=== PATIENT | female | born 1965 | race Caucasian/White ===

== ENCOUNTER 2024-11-29 09:15 | Observation (INO) | payer OTHER ==
--- NOTE | 2024-11-29 09:26 | ERPHSYRPT ---
- History of Present Illness Time Seen by Provider: 11/29/24 09:25 Source: patient, family Exam Limitations: clinical condition Physician History: This is a 58-year-old white female patient brought in by private vehicle accompanied by her spouse with symptoms consistent with anterograde amnesia. She was last well-known at 11 PM last night (11/28/2024). Patient's got up at approximately 6 AM and went to work out at his exercise club and when he returned she seemed forgetful and confused. Patient has only been diagnosed with arthritis in the past. There is been no new medications. She takes no medications chronically. There has been no known head injury. Patient denies chest pain. Patient denies shortness of breath. Patient's NIH score is 0. Patient is speaking clearly. Patient's systolic blood pressure on arrival to the emergency department is 177. Additional, independent history was provided by the patient's spouse. Patient spouse was already home. The patient actually got in her car and drove. She then returned home. She told the spouse that she does not feel right. Something is off. Patient does not recall getting in the car, driving or coming home. She does not recall the conversation that she had with her spouse. She does remember her spouse telling her that he is taken her to the hospital. The next memory is of her being transported to the CT scanner suite. Time of Onset/Last Time Seen Normal: At 11 PM on 11/28/2024 Timing/Duration: today Severity: mild (Moderate) Character of Deficits: other (Confused and unable to recollect) Deficits: no difficulties Baseline/Normal Cognition: alert oriented x 3 Current Cognition: alert oriented x 3 Associated Symptoms: confusion, No slurred speech, No trouble walking, No headache Allergies/Adverse Reactions: nitrous oxide Allergy (Verified 11/29/24 09:17) Home Medications: No Reportable Medications [No Reported Medications] 10/01/15 [History] Hx Influenza Vaccination/Date Given: No Hx Pneumococcal Vaccination/Date Given: No Travel Risk - International Travel Have you traveled outside of the country in past 3 weeks: No - Emerging Infectious Disease Are you exhibiting symptoms associated with any current EIDs: No - Vaccine Status Hx Covid Vaccintation/Booster/Date Given: No - Review of Systems Constitutional: No Symptoms Eyes: No Symptoms Ears, Nose, & Throat: No Symptoms Respiratory: No Symptoms Cardiac: No Symptoms Abdominal/Gastrointestinal: No Symptoms Genitourinary Symptoms: No Symptoms Musculoskeletal: No Symptoms Skin: No Symptoms Neurological: Other (Patient cannot recall recent events or conversations) Psychological: No Symptoms Endocrine: No Symptoms Hematologic/Lymphatic: No Symptoms Immunological/Allergic: No Symptoms All Other Systems: Reviewed and Negative - Past Medical History Neurological History: No Pertinent History Cardiac History: No Pertinent History Respiratory History: No Pertinent History Endocrine Medical History: No Pertinent History Musculoskeletal History: Arthritis - Past Surgical History Past Surgical History: No Neuro Surgical History: No Pertinent History Cardiac: No Pertinent History Respiratory: No Pertinent History Gastrointestinal: No Pertinent History Genitourinary: No Pertinent History Musculoskeletal: No Pertinent History Female Surgical History: No Pertinent History - Social History Smoking Status: Never smoker Exposure to second hand smoke: No Drug Use: none - Nursing Vital Signs Nursing Vital Signs: Initial Vital Signs Pulse Rate 97 H 11/29/24 09:18 Respiratory Rate 32 H 11/29/24 09:18 Blood Pressure 177/99 11/29/24 09:18 Pain Scale Pain Intensity 4 - [place] Coma Scale Best Eye Response (Keith): (4) open spontaneously Best Verbal Response ([place]): (5) oriented Best Motor Response (Keith): (6) obeys commands [place] Total: 15 - Physical Exam General Appearance: no apparent distress, alert, anxiety, thin Eye Exam: bilateral eye: normal inspection, PERRL, EOMI Ears, Nose, Throat Exam: normal ENT inspection, moist mucous membranes Neck Exam: normal inspection, non-tender, supple, full range of motion Respiratory: normal breath sounds, chest tenderness, lungs clear, respiratory distress Cardiovascular: regular rate/rhythm, normal heart sounds, normal peripheral pulses Gastrointestinal: soft, normal bowel sounds, No tenderness Pelvic Exam: not done Rectal Exam: not done Back Exam: normal inspection, normal range of motion, No CVA tenderness, No vertebral tenderness Extremity Exam: normal inspection, normal range of motion, pelvis stable Mental Status: alert, oriented x 3, cooperative paint dipper Exam: normal hearing, normal speech, PERRL, tongue midline Coordination/Gait: normal finger to nose, normal gait Motor/Sensory: no motor deficit, no sensory deficit, no pronator drift Skin Exam: normal color, warm, dry O2 Delivery: Room Air - Course Nursing assessment & vital signs reviewed: Yes EKG Interpreted by Me: RATE (78), Sinus Rhythm, NORMAL AXIS, NORMAL QRS, Other (Short [place] interval. QTc is 444. There are no acute ischemia findings.) Ordered Tests: Active Orders 24 hr Category Date Time Status Harbor Engineer STAT Care 11/29/24 09:28 Active EKG-ER Only STAT Care 11/29/24 09:27 Active IV Insertion STAT Care 11/29/24 09:27 Active NPO (ED) STAT Care 11/29/24 09:27 Active POCT Glucose Check STAT Care 11/29/24 09:27 Active Pulse Oximetry (ED) STAT Care 11/29/24 09:27 Active HEAD WITHOUT CONTRAST [CT] Stat Exams 11/29/24 09:16 Completed ACETAMINOPHEN Stat Lab 11/29/24 09:56 Completed BLOOD CULTURE Stat Lab 11/29/24 09:56 Received CBC W DIFF Stat Lab 11/29/24 09:56 Completed CMP Stat Lab 11/29/24 09:56 Completed ETHYL ALCOHOL Stat Lab 11/29/24 09:56 Completed Lactic Acid Stat Lab 11/29/24 09:27 Completed Lactic Acid Stat Lab 11/29/24 11:50 Stop Req MAGNESIUM Stat Lab 11/29/24 09:56 Completed POCT GLUCOSE Stat Lab 11/29/24 09:19 Completed SALICYLATE Stat Lab 11/29/24 09:56 Completed TROPONIN Q4H Lab 11/29/24 09:56 Completed TROPONIN Q4H Lab 11/29/24 09:56 Received TROPONIN Q4H Lab 11/29/24 18:00 Ordered TSH [TSH, 3RD Generation] Stat Lab 11/29/24 09:56 Completed UA W/RFX UR CULTURE Stat Lab 11/29/24 10:20 Completed Urine Triage Profile Stat Lab 11/29/24 10:20 Completed Transfer Order Routine Transfer 11/29/24 Ordered Medication Summary Discontinued Medications Generic Name Dose Route Start Last Admin Trade Name Freq PRN Reason Stop Dose Admin Ibuprofen 400 mg 11/29/24 11:06 11/29/24 11:56 Ibuprofen 400 Mg Tablet PO 11/29/24 11:07 Not Given STAT ONE Ibuprofen Confirm 11/29/24 11:08 Ibuprofen 400 Mg Tablet Administered 11/29/24 11:09 Dose 400 mg .ROUTE .STK-MED ONE Lab/Rad Data: Laboratory Result Diagrams 11/29/24 09:56 11/29/24 09:56 Laboratory Results 11/29/24 11/29/24 11/29/24 Range/Units 10:20 10:20 09:56 WBC (3.98-10.04) x10^3/uL RBC (3.93-5.22) x10^6/uL Hgb (11.2-15.7) g/dL Hct (34.1-44.9) % MCV (79.4-94.8) fL MCH (25.6-32.2) pg MCHC (32.2-35.5) g/dL RDW (11.7-14.4) % Plt Count (182-369) x10^3/uL MPV (9.4-12.3) fL Gran % (34.0-71.1) % Immature Gran % (Auto) (0.001-0.429) % Nucleat RBC Rel Count (0.00-0.2) % Eos # (Auto) (0.04-0.36) x10^3/uL Immature Gran # (Auto) (0.001-0.031) x10^3u/L Absolute Lymphs (auto) (1.18-3.74) x10^3/uL Absolute Monos (auto) (0.24-0.86) x10^3/uL Absolute Nucleated RBC (0.00-0.012) x10^3u/L Lymphocytes % (19.3-51.7) % Monocytes % (4.7-12.5) % Eosinophils % (0.7-5.8) % Basophils % (0.1-1.2) % Absolute Granulocytes (1.56-6.13) x10^3/uL Basophils # (0.01-0.08) x10^3/uL Sodium (135-145) mmol/L Potassium (3.5-5.1) mmol/L Chloride (98-107) mmol/L Carbon Dioxide (22-30) mmol/L Anion Gap (5-15) MEQ/L BUN (7-17) mg/dL Creatinine (0.52-1.04) mg/dL Estimated GFR ML/MIN Glucose (74-106) mg/dL POC Glucometer (74 to 106) mg/dL Lactic Acid (0.4-2.0) Calcium (8.4-10.2) mg/dL Magnesium (1.6-2.3) mg/dL Total Bilirubin (0.2-1.3) mg/dL AST (14-36) U/L ALT (0-35) U/L Alkaline Phosphatase (38-126) U/L Troponin I < 0.012 (0.000-0.033) ng/mL Serum Total Protein (6.3-8.2) g/dL Albumin (3.5-5.0) g/dL Free T4 (0.78-2.19) ng/dL TSH 3rd Generation (0.470-4.680) mIU/L Urine Color Yellow (Yellow) Urine Appearance Clear (Clear) Urine pH 5.0 (4.6-8.0) Ur Specific [place] 1.025 (1.005-1.030) Urine Protein Trace A (Negative) Urine Glucose (UA) Negative (Negative) mg/dL Urine Ketones Trace A (Negative) Urine Blood Negative (Negative) Urine Nitrite Negative (Negative) Urine Bilirubin Negative (Negative) Urine Urobilinogen 0.2 (0.2) mg/dL Ur Leukocyte Esterase Small A (Negative) U Hyaline Cast (Auto) NONE SEEN (0-2) /LPF Urine Microscopic RBC 0-2 (0-5) /HPF Urine Microscopic WBC 0-2 (0-5) /HPF Ur Epithelial Cells Rare (None Seen) /HPF Urine Bacteria None Seen (None Seen) /HPF Urine Culture Reflexed NO (NO) Salicylates (2-20) mg/dL Urine Opiates Level NEGATIVE (NEGATIVE) Ur Methadone NEGATIVE (NEGATIVE) Acetaminophen (10-30) ug/ml Urine Barbiturates NEGATIVE (NEGATIVE) Ur Phencyclidine (PCP) NEGATIVE (NEGATIVE) Urine Amphetamine NEGATIVE (NEGATIVE) U Benzodiazepine Level NEGATIVE (NEGATIVE) Urine Cocaine NEGATIVE (NEGATIVE) Urine Marijuana (THC) NEGATIVE (NEGATIVE) Ethyl Alcohol (0-10) mg/dL 11/29/24 11/29/24 11/29/24 Range/Units 09:56 09:56 09:56 WBC (3.98-10.04) x10^3/uL RBC (3.93-5.22) x10^6/uL Hgb (11.2-15.7) g/dL Hct (34.1-44.9) % MCV (79.4-94.8) fL MCH (25.6-32.2) pg MCHC (32.2-35.5) g/dL RDW (11.7-14.4) % Plt Count (182-369) x10^3/uL MPV (9.4-12.3) fL Gran % (34.0-71.1) % Immature Gran % (Auto) (0.001-0.429) % Nucleat RBC Rel Count (0.00-0.2) % Eos # (Auto) (0.04-0.36) x10^3/uL Immature Gran # (Auto) (0.001-0.031) x10^3u/L Absolute Lymphs (auto) (1.18-3.74) x10^3/uL Absolute Monos (auto) (0.24-0.86) x10^3/uL Absolute Nucleated RBC (0.00-0.012) x10^3u/L Lymphocytes % (19.3-51.7) % Monocytes % (4.7-12.5) % Eosinophils % (0.7-5.8) % Basophils % (0.1-1.2) % Absolute Granulocytes (1.56-6.13) x10^3/uL Basophils # (0.01-0.08) x10^3/uL Sodium 139 (135-145) mmol/L Potassium 3.6 (3.5-5.1) mmol/L Chloride 105 (98-107) mmol/L Carbon Dioxide 26 (22-30) mmol/L Anion Gap 11.0 (5-15) MEQ/L BUN 17 (7-17) mg/dL Creatinine 0.80 (0.52-1.04) mg/dL Estimated GFR 84.3 ML/MIN Glucose 127 H (74-106) mg/dL POC Glucometer (74 to 106) mg/dL Lactic Acid (0.4-2.0) Calcium 9.7 (8.4-10.2) mg/dL Magnesium 1.9 (1.6-2.3) mg/dL Total Bilirubin 1.90 H (0.2-1.3) mg/dL AST 25 (14-36) U/L ALT 19 (0-35) U/L Alkaline Phosphatase 101 (38-126) U/L Troponin I (0.000-0.033) ng/mL Serum Total Protein 7.5 (6.3-8.2) g/dL Albumin 4.7 (3.5-5.0) g/dL Free T4 1.34 (0.78-2.19) ng/dL TSH 3rd Generation 1.343 (0.470-4.680) mIU/L Urine Color (Yellow) Urine Appearance (Clear) Urine pH (4.6-8.0) Ur Specific [place] (1.005-1.030) Urine Protein (Negative) Urine Glucose (UA) (Negative) mg/dL Urine Ketones (Negative) Urine Blood (Negative) Urine Nitrite (Negative) Urine Bilirubin (Negative) Urine Urobilinogen (0.2) mg/dL Ur Leukocyte Esterase (Negative) U Hyaline Cast (Auto) (0-2) /LPF Urine Microscopic RBC (0-5) /HPF Urine Microscopic WBC (0-5) /HPF Ur Epithelial Cells (None Seen) /HPF Urine Bacteria (None Seen) /HPF Urine Culture Reflexed (NO) Salicylates < 1.0 L (2-20) mg/dL Urine Opiates Level (NEGATIVE) Ur Methadone (NEGATIVE) Acetaminophen < 10 L (10-30) ug/ml Urine Barbiturates (NEGATIVE) Ur Phencyclidine (PCP) (NEGATIVE) Urine Amphetamine (NEGATIVE) U Benzodiazepine Level (NEGATIVE) Urine Cocaine (NEGATIVE) Urine Marijuana (THC) (NEGATIVE) Ethyl Alcohol < 10 (0-10) mg/dL 11/29/24 11/29/24 11/29/24 Range/Units 09:56 09:27 09:19 WBC 5.1 (3.98-10.04) x10^3/uL RBC 4.83 (3.93-5.22) x10^6/uL Hgb 15.2 (11.2-15.7) g/dL Hct 44.0 (34.1-44.9) % MCV 91.1 (79.4-94.8) fL MCH 31.5 (25.6-32.2) pg MCHC 34.5 (32.2-35.5) g/dL RDW 12.3 (11.7-14.4) % Plt Count 191 (182-369) x10^3/uL MPV 9.9 (9.4-12.3) fL Gran % 67.8 (34.0-71.1) % Immature Gran % (Auto) 0.4 (0.001-0.429) % Nucleat RBC Rel Count 0.0 (0.00-0.2) % Eos # (Auto) 0.11 (0.04-0.36) x10^3/uL Immature Gran # (Auto) 0.02 (0.001-0.031) x10^3u/L Absolute Lymphs (auto) 1.09 L (1.18-3.74) x10^3/uL Absolute Monos (auto) 0.39 (0.24-0.86) x10^3/uL Absolute Nucleated RBC 0.00 (0.00-0.012) x10^3u/L Lymphocytes % 21.4 (19.3-51.7) % Monocytes % 7.6 (4.7-12.5) % Eosinophils % 2.2 (0.7-5.8) % Basophils % 0.6 (0.1-1.2) % Absolute Granulocytes 3.46 (1.56-6.13) x10^3/uL Basophils # 0.03 (0.01-0.08) x10^3/uL Sodium (135-145) mmol/L Potassium (3.5-5.1) mmol/L Chloride (98-107) mmol/L Carbon Dioxide (22-30) mmol/L Anion Gap (5-15) MEQ/L BUN (7-17) mg/dL Creatinine (0.52-1.04) mg/dL Estimated GFR ML/MIN Glucose (74-106) mg/dL POC Glucometer 115 H (74 to 106) mg/dL Lactic Acid 1.9 (0.4-2.0) Calcium (8.4-10.2) mg/dL Magnesium (1.6-2.3) mg/dL Total Bilirubin (0.2-1.3) mg/dL AST (14-36) U/L ALT (0-35) U/L Alkaline Phosphatase (38-126) U/L Troponin I (0.000-0.033) ng/mL Serum Total Protein (6.3-8.2) g/dL Albumin (3.5-5.0) g/dL Free T4 (0.78-2.19) ng/dL TSH 3rd Generation (0.470-4.680) mIU/L Urine Color (Yellow) Urine Appearance (Clear) Urine pH (4.6-8.0) Ur Specific [place] (1.005-1.030) Urine Protein (Negative) Urine Glucose (UA) (Negative) mg/dL Urine Ketones (Negative) Urine Blood (Negative) Urine Nitrite (Negative) Urine Bilirubin (Negative) Urine Urobilinogen (0.2) mg/dL Ur Leukocyte Esterase (Negative) U Hyaline Cast (Auto) (0-2) /LPF Urine Microscopic RBC (0-5) /HPF Urine Microscopic WBC (0-5) /HPF Ur Epithelial Cells (None Seen) /HPF Urine Bacteria (None Seen) /HPF Urine Culture Reflexed (NO) Salicylates (2-20) mg/dL Urine Opiates Level (NEGATIVE) Ur Methadone (NEGATIVE) Acetaminophen (10-30) ug/ml Urine Barbiturates (NEGATIVE) Ur Phencyclidine (PCP) (NEGATIVE) Urine Amphetamine (NEGATIVE) U Benzodiazepine Level (NEGATIVE) Urine Cocaine (NEGATIVE) Urine Marijuana (THC) (NEGATIVE) Ethyl Alcohol (0-10) mg/dL - Progress Progress: improved Progress Note: 11/29/24 09:38 My medical decision making and the assignment of at least moderate complexity of this patient's medical issue today is based on review of the patient's past medical history, review the patient's medication list, reviewed patient drug allergy list, history present illness and physical findings on examination. The workup in this patient includes stat CT scan of the head, placement of intravenous line, urinalysis, acetaminophen level, ethyl alcohol level, salicylate level, urinalysis, urine drug triage, CBC, CMP, magnesium, twelve- lead EKG, thyroid function test. Differential diagnosis includes but is not limited to stress reaction, head injury with intracranial abnormality, electrolyte abnormalities, dehydration, urinary tract infection, CVA, thyroid function abnormalities 11/29/24 11:33 I was informed by the nurse, Yolanda, that the teleneurologist has evaluated the patient. I have not heard from that teleneurologist as of yet. I interpreted the patient's laboratory data results. Based on the laboratory data results, I see no acute, emergent medical issue. The CT scan of the head without contrast was interpreted by the radiologist and I reviewed the impression. The impression states no intra or extra-axial hematoma. No parenchymal hypodense areas to suggest an acute ischemic insult. 11/29/24 12:02 The patient is reexamined and she is back to her baseline and asymptomatic. I spoke with Dr. Alston, the teleneurologist on-call at this time. She believes that this patient may have a transient global amnesia possibly secondary to migraine headache. She would like the patient to be placed in observation and monitored both from the neurostandpoint and the vascular standpoint. She would also like to have the patient undergo echocardiogram, EEG, Doppler of the carotids and MRA/MRI of the brain. She would also like the patient to have a aspirin every day as well as a statin. She specifically stated that there is no need for Plavix at this time. We will place this patient in observation and monitored. Since the patient is back at baseline and the TIA is low in the differential, she states that the echocardiogram, EEG, carotid Dopplers and MRA/MRI of the brain can be performed in the next couple of days. My concern about discharging this patient to home to have the studies done as an outpatient will delay her obtaining the studies for another week or 2. In addition, the patient and family prefer this patient to stay at our facility. I spoke with Dr. Ramirez, the telehospitalist on at this time and she agrees to place this patient in observation. Counseled pt/family regarding: lab results, need for follow-up Medical Desision Making - Independent Historian Additional History obtained from: Spouse, Relative/friend - Diagnostic Testing Diagnostic test were ordered, analyzed, and reviewed by me: Yes Radiological Interpretation: Reviewed by me, Teleradiologist Report - Risk of complications The pt has a high risk of morbidity or mortality based on: Decision regarding hospitilization or escalation of hosp level of care - Departure Departure Disposition: Observation Clinical Impression: Transient global amnesia, TIA (transient ischemic attack) Condition: Stable Critical Care Time: No Referrals: TRINO HIGUERA MD [Primary Care Provider, [facility]] - Follow up/PCP as directed
--- NOTE | 2024-11-29 09:50 | XRAY ---
CLINICAL HISTORY: CONFUSION COMPARISON: None. TECHNIQUE: Axial non-contrast CT scan of the brain was performed from the skull base to the high parietal region. One of the following dose reduction techniques were utilized for this exam: Automated exposure control, adjustment of the mA and/or kV according to patient size, use of iterative reconstruction. FINDINGS: Brain Parenchyma: Normal attenuation of the cerebral hemispheres, cerebellum, and brainstem. No evidence of acute infarct, hemorrhage, or mass effect. No abnormal areas of hypo- or hyperattenuation. Ventricular System: Ventricles are normal in size and configuration. No evidence of hydrocephalus or ventricular enlargement. Subarachnoid Spaces: Normal sulci and cisterns. No evidence of subarachnoid hemorrhage or extra-axial fluid collections. Cerebellum and Brainstem: No masses, lesions, or areas of abnormal density. Orbits: Normal appearance of the globes, optic nerves, and extraocular muscles. No evidence of orbital masses or abnormal density. Sinuses: Clear paranasal sinuses. No evidence of sinusitis or mucosal thickening. Mastoid Air Cells: Clear mastoid air cells. No evidence of mastoiditis. Skull: Normal skull morphology. IMPRESSION: 1. No intra- or extra-axial hematomas or parenchymal territorial hypodense areas suggest an acute ischemic insult. 2. Early changes of stroke may not be detected on a CT scan. If there is a strong clinical suspicion of stroke, then an MRI with diffusion-weighted imaging is suggested. The report was ready at 08:39 AM [employer], 11/29/2024 and the call was completed at 08:42 AM [facility], 11/29/2024, at [phone] and Kendell ( Nurse ) was informed regarding the negative stroke results. Electronically Signed by: Frances Marte MD. (11/29/2024 09:45:53 EDT)
[2024-11-29 10:14] LABS: Absolute Neutrophil Ct (ANC) 3.46 x10^3/uL (1.56-6.13); BASOPHIL % 0.6 % (0.1-1.2); Basophil (Absolute #) 0.03 x10^3/uL (0.01-0.08); Eosinophil % 2.2 % (0.7-5.8); Eosinophil (Absolute #) 0.11 x10^3/uL (0.04-0.36); Hemoglobin 15.2 g/dL (11.2-15.7); IMMATURE GRAN # 0.02 x10^3u/L (0.001-0.031); IMMATURE GRAN % 0.4 % (0.001-0.429); Lymphocyte (Absolute #) 1.09 x10^3/uL (1.18-3.74); Lymphocytes % 21.4 % (19.3-51.7); Mean Cell Volume 91.1 fL (79.4-94.8); Mean Corpuscular Hemoglobin 31.5 pg (25.6-32.2); Mean Corpuscular Hgb Concent. 34.5 g/dL (32.2-35.5); Mean Platelet Volume 9.9 fL (9.4-12.3); Monocyte (Absolute #) 0.39 x10^3/uL (0.24-0.86); Monocytes % 7.6 % (4.7-12.5); Neutrophil % 67.8 % (34.0-71.1); Platelet Count 191 x10^3/uL (182-369); Red Blood Count 4.83 x10^6/uL (3.93-5.22); Red Cell Distribution Width 12.3 % (11.7-14.4); White Blood Count 5.1 x10^3/uL (3.98-10.04)
[2024-11-29 10:21] LABS: ACETAMINOPHEN < 10 ug/ml (10-30); ALBUMIN 4.7 g/dL (3.5-5.0); ALKALINE PHOSPHATASE 101 U/L (38-126); BLOOD UREA NITROGEN 17 mg/dL (7-17); CHLORIDE 105 mmol/L (98-107); Calcium 9.7 mg/dL (8.4-10.2); Carbon Dioxide 26 mmol/L (22-30); EST GLOMERULAR FILTRATION RATE 84.3 ML/MIN; ETHYL ALCOHOL < 10 mg/dL (0-10); Glucose 127 mg/dL (74-106); MAGNESIUM 1.9 mg/dL (1.6-2.3); Potassium 3.6 mmol/L (3.5-5.1); SALICYLATE < 1.0 mg/dL (2-20); SGOT/AST 25 U/L (14-36); SGPT/ALT 19 U/L (0-35); SODIUM 139 mmol/L (135-145); Total Protein 7.5 g/dL (6.3-8.2)
[2024-11-29 10:57] LABS: Amphetamine,Urine NEGATIVE (NEGATIVE); Barbiturate,Urine NEGATIVE (NEGATIVE); Benzodiazepine,Urine NEGATIVE (NEGATIVE); Cocaine,Urine NEGATIVE (NEGATIVE); Methadone,Urine NEGATIVE (NEGATIVE); Opiate,Urine NEGATIVE (NEGATIVE); PCP,Urine NEGATIVE (NEGATIVE); THC,Urine NEGATIVE (NEGATIVE)
[2024-11-29 11:03] LABS: Appearance Clear (Clear); Bacteria None Seen /HPF (None Seen); Bilirubin Negative (Negative); Blood Negative (Negative); Epithelial Cells Rare /HPF (None Seen); Glucose, Urine Negative (Negative); Hyaline Casts NONE SEEN /LPF (0-2); Ketones Trace (Negative); Leukocyte Esterase Small (Negative); Nitrite Negative (Negative); Protein,Urine Dip Trace (Negative); RBC 0-2 /HPF (0-5); Specific Gravity 1.025 (1.005-1.030); Urobilinogen 0.2 mg/dL (0.2); WBC 0-2 /HPF (0-5)
[2024-11-29] MEDS ORDERED: MOTRIN 400 MG ONE (11:08)
[2024-11-29] MEDS: MOTRIN 400 MG PO ONE ×2 (11:56→15:33)
--- NOTE | 2024-11-29 12:19 | PCM.HP ---
<VITO ALEJANDRA - Last Filed: 11/29/24 13:45> History of Present Illness - Chief Complaint Chief Complaint: confusion Date: 11/29/24 History of Present Illness: is a 58 year old female with a past medical history significant only for arthritis and chronic back pain ( receives steroid injections at pain management in [place]), who presented to the ED 11/29/24 accompanied by her spouse with acute onset of anterograde amnesia. She was last known well at approximately 11:00 PM on 11/28/2024. Her is present during interview and states that he noted that the patient was forgetful and exhibited signs of confusion after returning home from his exercise class. Notably, she had left the home in her vehicle and returned, but she has no recollection of driving, leaving, or returning. 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 She subsequently told her spouse, I dont feel right, and could not recall the conversation they had shortly afterward. She remembers only being told she was going to the hospital, with her next memory being of her transport to get her CT scan. She stated during my interview that she felt like a fog was over her and now it is lifting and she is starting to recall tiny bits of information. On initial evaluation, the patient denied chest pain, shortness of breath, headache, focal neurological deficits, or visual disturbances. She is alert, speaking clearly, and following commands. Her National Institutes of Health Stroke Scale (NIHSS) score was 0, indicating no objective neurological deficits at the time of evaluation. Her vital signs were stable but notable for elevated systolic blood pressure, peaking at 180/81 mmHg. She was mildly tachypneic on arrival with otherwise normal oxygenation and heart rate. Initial laboratory evaluation was largely unremarkable, except for a mildly elevated total bilirubin of 1.9 mg/dL. Urinalysis showed small leukocytes, suggesting a possible subclinical urinary tract infection; however, the clinical relevance of this finding remains unclear in the absence of dysuria, fever, or other systemic signs of infection. A urine drug screen was negative. EKG revealed a sinus rhythm at a rate of 78 bpm, normal QRS duration and axis, and a QTc of 444 ms. There was a short IL interval noted, but no acute ischemic changes were present. Head CT demonstrated no evidence of acute intracranial hemorrhage, extra-axial fluid collection, or parenchymal hypodensity to suggest acute ischemic stroke. Findings were reviewed and confirmed by the attending radiologist. Teleneurology was consulted, and Dr. Alston evaluated the patient via telehealth. She concurred with the clinical impression of transient global amnesia (TGA), potentially migrainous in origin. Given the benign neurological exam and return to baseline mentation, Dr. Alston did not believe the presentation was consistent with transient ischemic attack (TIA) or seizure. Nonetheless, due to the diagnostic uncertainty and vascular risk, she recommended a brief period of observation and further evaluation including MRI/MRA of the brain, EEG, carotid Doppler ultrasonography, and transthoracic echocardiography. She also advised initiating aspirin therapy and a statin but did not feel antiplatelet therapy with clopidogrel (Plavix) was indicated. Patient currently declines the statin. Given concerns about the potential delay in outpatient testing and diagnostic workup, the patient will be admitted to observation for expedited completion of the above studies on Sunday and continued monitoring. Her condition remains stable and she has returned to baseline cognitive status. - Review of Systems Constitutional: No Symptoms Eyes: No Symptoms Ears, Nose, & Throat: No Symptoms Respiratory: No Symptoms Cardiac: No Symptoms Abdominal/Gastrointestinal: No Symptoms Genitourinary Symptoms: No Symptoms Musculoskeletal: Back Pain (chronic) Skin: No Symptoms Neurological: No Symptoms Psychological: Memory Loss Endocrine: No Symptoms Hematologic/Lymphatic: No Symptoms Immunological/Allergic: No Symptoms Medications & Allergies Home Medications: Home Medication List No Reportable Medications [No Reported Medications] 10/01/15 [History Confirmed 11/29/24] Allergies/Adverse Reactions: Allergies Allergy/AdvReac Type Severity Reaction Status Date / Time nitrous oxide Allergy Verified 11/29/24 15:47 - Past Medical History Past Medical History: Yes Neurological History: No Pertinent History ENT History: No Pertinent History Cardiac History: No Pertinent History Respiratory History: No Pertinent History Endocrine Medical History: No Pertinent History Musculoskelatal History: Arthritis GI Medical History: No Pertinent History History: No Pertinent History Pyscho-Social History: No Pertinent History Reproductive Disorders: No Pertinent History - Past Surgical History Past Surgical History: No Neuro Surgical History: No Pertinent History Cardiac History: No Pertinent History Respiratory Surgery: No Pertinent History GI Surgical History: No Pertinent History Genitourinary Surgical Hx: No Pertinent History Musculskeletal Surgical Hx: No Pertinent History Female Surgical History: No Pertinent History Significant Family History: other (AFIB) - Social History Smoking Status: Never smoker Exposure to second hand smoke: No Alcohol: None Drug Use: none - Social Determinants of Health Will the patient participate in the screening: Yes Do you worry about a steady place to live?: No Do you have any problems with any of the following?: No known problems In the past 12 months,have you had to go without utilities?: No Have you or anyone in your house had to go without enough: No Transportation Issues: No Has anyone in your support network made you feel unsafe?: No - Physical Exam Vital Signs: Vital Signs - 24 hr Temp Pulse Resp BP BP Pulse Ox 11/29/24 11:30 84 18 142/52 97 11/29/24 11:20 88 27 H 169/75 98 11/29/24 11:10 89 17 174/98 97 11/29/24 10:50 83 18 180/81 99 11/29/24 10:40 91 H 33 H 169/80 99 11/29/24 10:30 86 24 180/76 99 11/29/24 10:29 92 H 22 97 11/29/24 10:20 81 27 H 97 11/29/24 10:10 76 17 99 11/29/24 10:00 84 22 99 11/29/24 09:51 83 20 97 11/29/24 09:33 85 16 177/70 99 11/29/24 09:30 87 24 165/102 98 11/29/24 09:27 98 11/29/24 09:19 97.7 F 94 H 17 177/99 98 11/29/24 09:18 97 H 32 H 177/99 General Appearance: no apparent distress Neurologic Exam: alert, oriented x 3, cooperative Eye Exam: PERRL/EOMI Ears, Nose, Throat Exam: normal ENT inspection Neck Exam: normal inspection Respiratory Exam: normal breath sounds, lungs clear Cardiovascular Exam: regular rate/rhythm, normal heart sounds Gastrointestinal/Abdomen Exam: soft, normal bowel sounds Pelvic Exam: not done Rectal Exam: deferred Back Exam: normal inspection Extremity Exam: normal inspection Skin Exam: normal color Results - Labs Lab/Micro Results: Lab Results-Last 24 Hours 11/29/24 11/29/24 11/29/24 Range/Units 09:19 09:27 09:56 WBC 5.1 (3.98-10.04) x10^3/uL RBC 4.83 (3.93-5.22) x10^6/uL Hgb 15.2 (11.2-15.7) g/dL Hct 44.0 (34.1-44.9) % MCV 91.1 (79.4-94.8) fL MCH 31.5 (25.6-32.2) pg MCHC 34.5 (32.2-35.5) g/dL RDW 12.3 (11.7-14.4) % Plt Count 191 (182-369) x10^3/uL MPV 9.9 (9.4-12.3) fL Gran % 67.8 (34.0-71.1) % Immature Gran % (Auto) 0.4 (0.001-0.429) % Nucleat RBC Rel Count 0.0 (0.00-0.2) % Eos # (Auto) 0.11 (0.04-0.36) x10^3/uL Immature Gran # (Auto) 0.02 (0.001-0.031) x10^3u/L Absolute Lymphs (auto) 1.09 L (1.18-3.74) x10^3/uL Absolute Monos (auto) 0.39 (0.24-0.86) x10^3/uL Absolute Nucleated RBC 0.00 (0.00-0.012) x10^3u/L Lymphocytes % 21.4 (19.3-51.7) % Monocytes % 7.6 (4.7-12.5) % Eosinophils % 2.2 (0.7-5.8) % Basophils % 0.6 (0.1-1.2) % Absolute Granulocytes 3.46 (1.56-6.13) x10^3/uL Basophils # 0.03 (0.01-0.08) x10^3/uL Sodium (135-145) mmol/L Potassium (3.5-5.1) mmol/L Chloride (98-107) mmol/L Carbon Dioxide (22-30) mmol/L Anion Gap (5-15) MEQ/L BUN (7-17) mg/dL Creatinine (0.52-1.04) mg/dL Estimated GFR ML/MIN Glucose (74-106) mg/dL POC Glucometer 115 H (74 to 106) mg/dL Lactic Acid 1.9 (0.4-2.0) Calcium (8.4-10.2) mg/dL Magnesium (1.6-2.3) mg/dL Total Bilirubin (0.2-1.3) mg/dL AST (14-36) U/L ALT (0-35) U/L Alkaline Phosphatase (38-126) U/L Troponin I (0.000-0.033) ng/mL Serum Total Protein (6.3-8.2) g/dL Albumin (3.5-5.0) g/dL Free T4 (0.78-2.19) ng/dL TSH 3rd Generation (0.470-4.680) mIU/L Urine Color (Yellow) Urine Appearance (Clear) Urine pH (4.6-8.0) Ur Specific Matthews (1.005-1.030) Urine Protein (Negative) Urine Glucose (UA) (Negative) mg/dL Urine Ketones (Negative) Urine Blood (Negative) Urine Nitrite (Negative) Urine Bilirubin (Negative) Urine Urobilinogen (0.2) mg/dL Ur Leukocyte Esterase (Negative) U Hyaline Cast (Auto) (0-2) /LPF Urine Microscopic RBC (0-5) /HPF Urine Microscopic WBC (0-5) /HPF Ur Epithelial Cells (None Seen) /HPF Urine Bacteria (None Seen) /HPF Urine Culture Reflexed (NO) Salicylates (2-20) mg/dL Urine Opiates Level (NEGATIVE) Ur Methadone (NEGATIVE) Acetaminophen (10-30) ug/ml Urine Barbiturates (NEGATIVE) Ur Phencyclidine (PCP) (NEGATIVE) Urine Amphetamine (NEGATIVE) U Benzodiazepine Level (NEGATIVE) Urine Cocaine (NEGATIVE) Urine Marijuana (THC) (NEGATIVE) Ethyl Alcohol (0-10) mg/dL 11/29/24 11/29/24 11/29/24 Range/Units 09:56 09:56 09:56 WBC (3.98-10.04) x10^3/uL RBC (3.93-5.22) x10^6/uL Hgb (11.2-15.7) g/dL Hct (34.1-44.9) % MCV (79.4-94.8) fL MCH (25.6-32.2) pg MCHC (32.2-35.5) g/dL RDW (11.7-14.4) % Plt Count (182-369) x10^3/uL MPV (9.4-12.3) fL Gran % (34.0-71.1) % Immature Gran % (Auto) (0.001-0.429) % Nucleat RBC Rel Count (0.00-0.2) % Eos # (Auto) (0.04-0.36) x10^3/uL Immature Gran # (Auto) (0.001-0.031) x10^3u/L Absolute Lymphs (auto) (1.18-3.74) x10^3/uL Absolute Monos (auto) (0.24-0.86) x10^3/uL Absolute Nucleated RBC (0.00-0.012) x10^3u/L Lymphocytes % (19.3-51.7) % Monocytes % (4.7-12.5) % Eosinophils % (0.7-5.8) % Basophils % (0.1-1.2) % Absolute Granulocytes (1.56-6.13) x10^3/uL Basophils # (0.01-0.08) x10^3/uL Sodium 139 (135-145) mmol/L Potassium 3.6 (3.5-5.1) mmol/L Chloride 105 (98-107) mmol/L Carbon Dioxide 26 (22-30) mmol/L Anion Gap 11.0 (5-15) MEQ/L BUN 17 (7-17) mg/dL Creatinine 0.80 (0.52-1.04) mg/dL Estimated GFR 84.3 ML/MIN Glucose 127 H (74-106) mg/dL POC Glucometer (74 to 106) mg/dL Lactic Acid (0.4-2.0) Calcium 9.7 (8.4-10.2) mg/dL Magnesium 1.9 (1.6-2.3) mg/dL Total Bilirubin 1.90 H (0.2-1.3) mg/dL AST 25 (14-36) U/L ALT 19 (0-35) U/L Alkaline Phosphatase 101 (38-126) U/L Troponin I (0.000-0.033) ng/mL Serum Total Protein 7.5 (6.3-8.2) g/dL Albumin 4.7 (3.5-5.0) g/dL Free T4 1.34 (0.78-2.19) ng/dL TSH 3rd Generation 1.343 (0.470-4.680) mIU/L Urine Color (Yellow) Urine Appearance (Clear) Urine pH (4.6-8.0) Ur Specific Matthews (1.005-1.030) Urine Protein (Negative) Urine Glucose (UA) (Negative) mg/dL Urine Ketones (Negative) Urine Blood (Negative) Urine Nitrite (Negative) Urine Bilirubin (Negative) Urine Urobilinogen (0.2) mg/dL Ur Leukocyte Esterase (Negative) U Hyaline Cast (Auto) (0-2) /LPF Urine Microscopic RBC (0-5) /HPF Urine Microscopic WBC (0-5) /HPF Ur Epithelial Cells (None Seen) /HPF Urine Bacteria (None Seen) /HPF Urine Culture Reflexed (NO) Salicylates < 1.0 L (2-20) mg/dL Urine Opiates Level (NEGATIVE) Ur Methadone (NEGATIVE) Acetaminophen < 10 L (10-30) ug/ml Urine Barbiturates (NEGATIVE) Ur Phencyclidine (PCP) (NEGATIVE) Urine Amphetamine (NEGATIVE) U Benzodiazepine Level (NEGATIVE) Urine Cocaine (NEGATIVE) Urine Marijuana (THC) (NEGATIVE) Ethyl Alcohol < 10 (0-10) mg/dL 11/29/24 11/29/24 11/29/24 Range/Units 09:56 10:20 10:20 WBC (3.98-10.04) x10^3/uL RBC (3.93-5.22) x10^6/uL Hgb (11.2-15.7) g/dL Hct (34.1-44.9) % MCV (79.4-94.8) fL MCH (25.6-32.2) pg MCHC (32.2-35.5) g/dL RDW (11.7-14.4) % Plt Count (182-369) x10^3/uL MPV (9.4-12.3) fL Gran % (34.0-71.1) % Immature Gran % (Auto) (0.001-0.429) % Nucleat RBC Rel Count (0.00-0.2) % Eos # (Auto) (0.04-0.36) x10^3/uL Immature Gran # (Auto) (0.001-0.031) x10^3u/L Absolute Lymphs (auto) (1.18-3.74) x10^3/uL Absolute Monos (auto) (0.24-0.86) x10^3/uL Absolute Nucleated RBC (0.00-0.012) x10^3u/L Lymphocytes % (19.3-51.7) % Monocytes % (4.7-12.5) % Eosinophils % (0.7-5.8) % Basophils % (0.1-1.2) % Absolute Granulocytes (1.56-6.13) x10^3/uL Basophils # (0.01-0.08) x10^3/uL Sodium (135-145) mmol/L Potassium (3.5-5.1) mmol/L Chloride (98-107) mmol/L Carbon Dioxide (22-30) mmol/L Anion Gap (5-15) MEQ/L BUN (7-17) mg/dL Creatinine (0.52-1.04) mg/dL Estimated GFR ML/MIN Glucose (74-106) mg/dL POC Glucometer (74 to 106) mg/dL Lactic Acid (0.4-2.0) Calcium (8.4-10.2) mg/dL Magnesium (1.6-2.3) mg/dL Total Bilirubin (0.2-1.3) mg/dL AST (14-36) U/L ALT (0-35) U/L Alkaline Phosphatase (38-126) U/L Troponin I < 0.012 (0.000-0.033) ng/mL Serum Total Protein (6.3-8.2) g/dL Albumin (3.5-5.0) g/dL Free T4 (0.78-2.19) ng/dL TSH 3rd Generation (0.470-4.680) mIU/L Urine Color Yellow (Yellow) Urine Appearance Clear (Clear) Urine pH 5.0 (4.6-8.0) Ur Specific Matthews 1.025 (1.005-1.030) Urine Protein Trace A (Negative) Urine Glucose (UA) Negative (Negative) mg/dL Urine Ketones Trace A (Negative) Urine Blood Negative (Negative) Urine Nitrite Negative (Negative) Urine Bilirubin Negative (Negative) Urine Urobilinogen 0.2 (0.2) mg/dL Ur Leukocyte Esterase Small A (Negative) U Hyaline Cast (Auto) NONE SEEN (0-2) /LPF Urine Microscopic RBC 0-2 (0-5) /HPF Urine Microscopic WBC 0-2 (0-5) /HPF Ur Epithelial Cells Rare (None Seen) /HPF Urine Bacteria None Seen (None Seen) /HPF Urine Culture Reflexed NO (NO) Salicylates (2-20) mg/dL Urine Opiates Level NEGATIVE (NEGATIVE) Ur Methadone NEGATIVE (NEGATIVE) Acetaminophen (10-30) ug/ml Urine Barbiturates NEGATIVE (NEGATIVE) Ur Phencyclidine (PCP) NEGATIVE (NEGATIVE) Urine Amphetamine NEGATIVE (NEGATIVE) U Benzodiazepine Level NEGATIVE (NEGATIVE) Urine Cocaine NEGATIVE (NEGATIVE) Urine Marijuana (THC) NEGATIVE (NEGATIVE) Ethyl Alcohol (0-10) mg/dL Accuchecks Date 11/29/24 Date 11/29/24 Time 09:19 Time 09:19 - Radiology Impressions Radiology Exams & Impressions: Radiology Procedures Category Date Time Status HEAD WITHOUT CONTRAST [CT] Stat Exams 11/29/24 09:16 Completed Assessment/Plan (1) Transient global amnesia Current Visit: Yes Status: Acute Assessment & Plan: -Admit to observation for neurological monitoring -CT Head without contrast: No evidence of intra- or extra-axial hemorrhage; no hypodensities to suggest acute ischemia; no mass effect or midline shift. -EKG: Sinus rhythm, rate 78 bpm, normal axis, normal QRS duration, short IL interval, QTc 444 ms; no ST-T wave changes indicative of acute ischemia -Tele-Neuro - Clinical picture consistent with transient global amnesia, possibly migraine-associated -No indication for thrombolysis or acute stroke intervention -CMP/CBC reviewed - unremarkable -Mild tachypnea and elevated systolic blood pressure (177 mmHg) noted on presentation, resolved without pharmacologic intervention -UA with small leukocyte- no signs of overt UTI -Admit to observation with neurological and vascular monitoring. -Initiate aspirin 81 mg daily and begin statin therapy for secondary prevention - patient declines statin -No indication for Plavix at this time. -Further diagnostic evaluation can be performed during observation stay on Sunday per neuro recommendations: Echocardiogram, EEG, Carotid Doppler ul trasound,MRI/MRA of the brain- Neuro will continue to follow- agree with plan -Patient currently at baseline-neurologically intact -TSH WNL -UDS negative Code(s): G45.4 - TRANSIENT GLOBAL AMNESIA (2) Altered mental status Current Visit: Yes Status: Acute Assessment & Plan: -see TGA above Code(s): R41.82 - ALTERED MENTAL STATUS, UNSPECIFIED (3) Arthritis Current Visit: Yes Status: Acute Assessment & Plan: -continue home regimen Code(s): M19.90 - UNSPECIFIED OSTEOARTHRITIS, UNSPECIFIED SITE (4) Chronic back pain Current Visit: Yes Status: Acute Assessment & Plan: -Under the care of pain management in [place]- patient receives steroid injections most recently last week Code(s): M54.9 - DORSALGIA, UNSPECIFIED; G89.29 - OTHER CHRONIC PAIN (5) Hypertension Current Visit: Yes Status: Acute Assessment & Plan: -Monitor blood pressure throughout observation stay -Consider initiating antihypertensive therapy if BP remains elevated VTE: SCD/ASA Dispo: 2-3 days Code status: Full Code Code(s): I10 - ESSENTIAL (PRIMARY) HYPERTENSION Telemedicine Encounter - Telemedicine Encounter Telemedicine Encounter: "The entirety of this encounter was performed via Telemedicine" This visit was performed using real-time audio and video connection between my location and thepatients locationwith the assistance of a surrogateat the patients location. Written or verbal consent was obtained from the patient/guardian to perform this visit usingnchrwitham health servicesmedicine technology. Any patient questions regarding the telemedicine interaction were answered. <SHAMIKA OLMSTEAD - Last Filed: 11/29/24 17:58> History of Present Illness - Chief Complaint History of Present Illness: is a 58 year old female. - Physical Exam Vital Signs: Vital Signs - 24 hr Temp Pulse Resp BP BP Pulse Ox 11/29/24 17:23 98.8 F 89 16 144/75 94 L 11/29/24 15:49 99.3 F 75 14 147/70 94 L 11/29/24 13:23 101 H 16 170/82 94 L 11/29/24 13:00 88 150/81 11/29/24 12:30 83 14 168/69 97 11/29/24 12:00 86 13 161/71 97 11/29/24 11:41 77 17 166/79 97 11/29/24 11:30 84 18 142/52 97 11/29/24 11:20 88 27 H 169/75 98 11/29/24 11:10 89 17 174/98 97 11/29/24 10:50 83 18 180/81 99 11/29/24 10:40 91 H 33 H 169/80 99 11/29/24 10:30 86 24 180/76 99 11/29/24 10:29 92 H 22 97 11/29/24 10:20 81 27 H 97 11/29/24 10:10 76 17 99 11/29/24 10:00 84 22 99 11/29/24 09:51 83 20 97 11/29/24 09:33 85 16 177/70 99 11/29/24 09:30 87 24 165/102 98 11/29/24 09:27 98 11/29/24 09:19 97.7 F 94 H 17 177/99 98 11/29/24 09:18 97 H 32 H 177/99 Results - Labs Lab/Micro Results: Lab Results-Last 24 Hours 11/29/24 11/29/24 11/29/24 Range/Units 02:15 09:19 09:27 WBC (3.98-10.04) x10^3/uL RBC (3.93-5.22) x10^6/uL Hgb (11.2-15.7) g/dL Hct (34.1-44.9) % MCV (79.4-94.8) fL MCH (25.6-32.2) pg MCHC (32.2-35.5) g/dL RDW (11.7-14.4) % Plt Count (182-369) x10^3/uL MPV (9.4-12.3) fL Gran % (34.0-71.1) % Immature Gran % (Auto) (0.001-0.429) % Nucleat RBC Rel Count (0.00-0.2) % Eos # (Auto) (0.04-0.36) x10^3/uL Immature Gran # (Auto) (0.001-0.031) x10^3u/L Absolute Lymphs (auto) (1.18-3.74) x10^3/uL Absolute Monos (auto) (0.24-0.86) x10^3/uL Absolute Nucleated RBC (0.00-0.012) x10^3u/L Lymphocytes % (19.3-51.7) % Monocytes % (4.7-12.5) % Eosinophils % (0.7-5.8) % Basophils % (0.1-1.2) % Absolute Granulocytes (1.56-6.13) x10^3/uL Basophils # (0.01-0.08) x10^3/uL Sodium (135-145) mmol/L Potassium (3.5-5.1) mmol/L Chloride (98-107) mmol/L Carbon Dioxide (22-30) mmol/L Anion Gap (5-15) MEQ/L BUN (7-17) mg/dL Creatinine (0.52-1.04) mg/dL Estimated GFR ML/MIN Glucose (74-106) mg/dL POC Glucometer 115 H (74 to 106) mg/dL Lactic Acid 1.9 (0.4-2.0) Calcium (8.4-10.2) mg/dL Magnesium (1.6-2.3) mg/dL Total Bilirubin (0.2-1.3) mg/dL AST (14-36) U/L ALT (0-35) U/L Alkaline Phosphatase (38-126) U/L Troponin I (0.000-0.033) ng/mL Serum Total Protein (6.3-8.2) g/dL Albumin (3.5-5.0) g/dL Vitamin B12 331 (239-931) pg/mL Free T4 (0.78-2.19) ng/dL TSH 3rd Generation (0.470-4.680) mIU/L Urine Color (Yellow) Urine Appearance (Clear) Urine pH (4.6-8.0) Ur Specific Matthews (1.005-1.030) Urine Protein (Negative) Urine Glucose (UA) (Negative) mg/dL Urine Ketones (Negative) Urine Blood (Negative) Urine Nitrite (Negative) Urine Bilirubin (Negative) Urine Urobilinogen (0.2) mg/dL Ur Leukocyte Esterase (Negative) U Hyaline Cast (Auto) (0-2) /LPF Urine Microscopic RBC (0-5) /HPF Urine Microscopic WBC (0-5) /HPF Ur Epithelial Cells (None Seen) /HPF Urine Bacteria (None Seen) /HPF Urine Culture Reflexed (NO) Salicylates (2-20) mg/dL Urine Opiates Level (NEGATIVE) Ur Methadone (NEGATIVE) Acetaminophen (10-30) ug/ml Urine Barbiturates (NEGATIVE) Ur Phencyclidine (PCP) (NEGATIVE) Urine Amphetamine (NEGATIVE) U Benzodiazepine Level (NEGATIVE) Urine Cocaine (NEGATIVE) Urine Marijuana (THC) (NEGATIVE) Ethyl Alcohol (0-10) mg/dL 11/29/24 11/29/24 11/29/24 Range/Units 09:56 09:56 09:56 WBC 5.1 (3.98-10.04) x10^3/uL RBC 4.83 (3.93-5.22) x10^6/uL Hgb 15.2 (11.2-15.7) g/dL Hct 44.0 (34.1-44.9) % MCV 91.1 (79.4-94.8) fL MCH 31.5 (25.6-32.2) pg MCHC 34.5 (32.2-35.5) g/dL RDW 12.3 (11.7-14.4) % Plt Count 191 (182-369) x10^3/uL MPV 9.9 (9.4-12.3) fL Gran % 67.8 (34.0-71.1) % Immature Gran % (Auto) 0.4 (0.001-0.429) % Nucleat RBC Rel Count 0.0 (0.00-0.2) % Eos # (Auto) 0.11 (0.04-0.36) x10^3/uL Immature Gran # (Auto) 0.02 (0.001-0.031) x10^3u/L Absolute Lymphs (auto) 1.09 L (1.18-3.74) x10^3/uL Absolute Monos (auto) 0.39 (0.24-0.86) x10^3/uL Absolute Nucleated RBC 0.00 (0.00-0.012) x10^3u/L Lymphocytes % 21.4 (19.3-51.7) % Monocytes % 7.6 (4.7-12.5) % Eosinophils % 2.2 (0.7-5.8) % Basophils % 0.6 (0.1-1.2) % Absolute Granulocytes 3.46 (1.56-6.13) x10^3/uL Basophils # 0.03 (0.01-0.08) x10^3/uL Sodium 139 (135-145) mmol/L Potassium 3.6 (3.5-5.1) mmol/L Chloride 105 (98-107) mmol/L Carbon Dioxide 26 (22-30) mmol/L Anion Gap 11.0 (5-15) MEQ/L BUN 17 (7-17) mg/dL Creatinine 0.80 (0.52-1.04) mg/dL Estimated GFR 84.3 ML/MIN Glucose 127 H (74-106) mg/dL POC Glucometer (74 to 106) mg/dL Lactic Acid (0.4-2.0) Calcium 9.7 (8.4-10.2) mg/dL Magnesium 1.9 (1.6-2.3) mg/dL Total Bilirubin 1.90 H (0.2-1.3) mg/dL AST 25 (14-36) U/L ALT 19 (0-35) U/L Alkaline Phosphatase 101 (38-126) U/L Troponin I (0.000-0.033) ng/mL Serum Total Protein 7.5 (6.3-8.2) g/dL Albumin 4.7 (3.5-5.0) g/dL Vitamin B12 (239-931) pg/mL Free T4 (0.78-2.19) ng/dL TSH 3rd Generation 1.343 (0.470-4.680) mIU/L Urine Color (Yellow) Urine Appearance (Clear) Urine pH (4.6-8.0) Ur Specific Matthews (1.005-1.030) Urine Protein (Negative) Urine Glucose (UA) (Negative) mg/dL Urine Ketones (Negative) Urine Blood (Negative) Urine Nitrite (Negative) Urine Bilirubin (Negative) Urine Urobilinogen (0.2) mg/dL Ur Leukocyte Esterase (Negative) U Hyaline Cast (Auto) (0-2) /LPF Urine Microscopic RBC (0-5) /HPF Urine Microscopic WBC (0-5) /HPF Ur Epithelial Cells (None Seen) /HPF Urine Bacteria (None Seen) /HPF Urine Culture Reflexed (NO) Salicylates < 1.0 L (2-20) mg/dL Urine Opiates Level (NEGATIVE) Ur Methadone (NEGATIVE) Acetaminophen < 10 L (10-30) ug/ml Urine Barbiturates (NEGATIVE) Ur Phencyclidine (PCP) (NEGATIVE) Urine Amphetamine (NEGATIVE) U Benzodiazepine Level (NEGATIVE) Urine Cocaine (NEGATIVE) Urine Marijuana (THC) (NEGATIVE) Ethyl Alcohol < 10 (0-10) mg/dL 11/29/24 11/29/24 11/29/24 Range/Units 09:56 09:56 10:20 WBC (3.98-10.04) x10^3/uL RBC (3.93-5.22) x10^6/uL Hgb (11.2-15.7) g/dL Hct (34.1-44.9) % MCV (79.4-94.8) fL MCH (25.6-32.2) pg MCHC (32.2-35.5) g/dL RDW (11.7-14.4) % Plt Count (182-369) x10^3/uL MPV (9.4-12.3) fL Gran % (34.0-71.1) % Immature Gran % (Auto) (0.001-0.429) % Nucleat RBC Rel Count (0.00-0.2) % Eos # (Auto) (0.04-0.36) x10^3/uL Immature Gran # (Auto) (0.001-0.031) x10^3u/L Absolute Lymphs (auto) (1.18-3.74) x10^3/uL Absolute Monos (auto) (0.24-0.86) x10^3/uL Absolute Nucleated RBC (0.00-0.012) x10^3u/L Lymphocytes % (19.3-51.7) % Monocytes % (4.7-12.5) % Eosinophils % (0.7-5.8) % Basophils % (0.1-1.2) % Absolute Granulocytes (1.56-6.13) x10^3/uL Basophils # (0.01-0.08) x10^3/uL Sodium (135-145) mmol/L Potassium (3.5-5.1) mmol/L Chloride (98-107) mmol/L Carbon Dioxide (22-30) mmol/L Anion Gap (5-15) MEQ/L BUN (7-17) mg/dL Creatinine (0.52-1.04) mg/dL Estimated GFR ML/MIN Glucose (74-106) mg/dL POC Glucometer (74 to 106) mg/dL Lactic Acid (0.4-2.0) Calcium (8.4-10.2) mg/dL Magnesium (1.6-2.3) mg/dL Total Bilirubin (0.2-1.3) mg/dL AST (14-36) U/L ALT (0-35) U/L Alkaline Phosphatase (38-126) U/L Troponin I < 0.012 (0.000-0.033) ng/mL Serum Total Protein (6.3-8.2) g/dL Albumin (3.5-5.0) g/dL Vitamin B12 (239-931) pg/mL Free T4 1.34 (0.78-2.19) ng/dL TSH 3rd Generation (0.470-4.680) mIU/L Urine Color Yellow (Yellow) Urine Appearance Clear (Clear) Urine pH 5.0 (4.6-8.0) Ur Specific Matthews 1.025 (1.005-1.030) Urine Protein Trace A (Negative) Urine Glucose (UA) Negative (Negative) mg/dL Urine Ketones Trace A (Negative) Urine Blood Negative (Negative) Urine Nitrite Negative (Negative) Urine Bilirubin Negative (Negative) Urine Urobilinogen 0.2 (0.2) mg/dL Ur Leukocyte Esterase Small A (Negative) U Hyaline Cast (Auto) NONE SEEN (0-2) /LPF Urine Microscopic RBC 0-2 (0-5) /HPF Urine Microscopic WBC 0-2 (0-5) /HPF Ur Epithelial Cells Rare (None Seen) /HPF Urine Bacteria None Seen (None Seen) /HPF Urine Culture Reflexed NO (NO) Salicylates (2-20) mg/dL Urine Opiates Level (NEGATIVE) Ur Methadone (NEGATIVE) Acetaminophen (10-30) ug/ml Urine Barbiturates (NEGATIVE) Ur Phencyclidine (PCP) (NEGATIVE) Urine Amphetamine (NEGATIVE) U Benzodiazepine Level (NEGATIVE) Urine Cocaine (NEGATIVE) Urine Marijuana (THC) (NEGATIVE) Ethyl Alcohol (0-10) mg/dL 11/29/24 11/29/24 Range/Units 10:20 14:20 WBC (3.98-10.04) x10^3/uL RBC (3.93-5.22) x10^6/uL Hgb (11.2-15.7) g/dL Hct (34.1-44.9) % MCV (79.4-94.8) fL MCH (25.6-32.2) pg MCHC (32.2-35.5) g/dL RDW (11.7-14.4) % Plt Count (182-369) x10^3/uL MPV (9.4-12.3) fL Gran % (34.0-71.1) % Immature Gran % (Auto) (0.001-0.429) % Nucleat RBC Rel Count (0.00-0.2) % Eos # (Auto) (0.04-0.36) x10^3/uL Immature Gran # (Auto) (0.001-0.031) x10^3u/L Absolute Lymphs (auto) (1.18-3.74) x10^3/uL Absolute Monos (auto) (0.24-0.86) x10^3/uL Absolute Nucleated RBC (0.00-0.012) x10^3u/L Lymphocytes % (19.3-51.7) % Monocytes % (4.7-12.5) % Eosinophils % (0.7-5.8) % Basophils % (0.1-1.2) % Absolute Granulocytes (1.56-6.13) x10^3/uL Basophils # (0.01-0.08) x10^3/uL Sodium (135-145) mmol/L Potassium (3.5-5.1) mmol/L Chloride (98-107) mmol/L Carbon Dioxide (22-30) mmol/L Anion Gap (5-15) MEQ/L BUN (7-17) mg/dL Creatinine (0.52-1.04) mg/dL Estimated GFR ML/MIN Glucose (74-106) mg/dL POC Glucometer (74 to 106) mg/dL Lactic Acid (0.4-2.0) Calcium (8.4-10.2) mg/dL Magnesium (1.6-2.3) mg/dL Total Bilirubin (0.2-1.3) mg/dL AST (14-36) U/L ALT (0-35) U/L Alkaline Phosphatase (38-126) U/L Troponin I < 0.012 (0.000-0.033) ng/mL Serum Total Protein (6.3-8.2) g/dL Albumin (3.5-5.0) g/dL Vitamin B12 (239-931) pg/mL Free T4 (0.78-2.19) ng/dL TSH 3rd Generation (0.470-4.680) mIU/L Urine Color (Yellow) Urine Appearance (Clear) Urine pH (4.6-8.0) Ur Specific Matthews (1.005-1.030) Urine Protein (Negative) Urine Glucose (UA) (Negative) mg/dL Urine Ketones (Negative) Urine Blood (Negative) Urine Nitrite (Negative) Urine Bilirubin (Negative) Urine Urobilinogen (0.2) mg/dL Ur Leukocyte Esterase (Negative) U Hyaline Cast (Auto) (0-2) /LPF Urine Microscopic RBC (0-5) /HPF Urine Microscopic WBC (0-5) /HPF Ur Epithelial Cells (None Seen) /HPF Urine Bacteria (None Seen) /HPF Urine Culture Reflexed (NO) Salicylates (2-20) mg/dL Urine Opiates Level NEGATIVE (NEGATIVE) Ur Methadone NEGATIVE (NEGATIVE) Acetaminophen (10-30) ug/ml Urine Barbiturates NEGATIVE (NEGATIVE) Ur Phencyclidine (PCP) NEGATIVE (NEGATIVE) Urine Amphetamine NEGATIVE (NEGATIVE) U Benzodiazepine Level NEGATIVE (NEGATIVE) Urine Cocaine NEGATIVE (NEGATIVE) Urine Marijuana (THC) NEGATIVE (NEGATIVE) Ethyl Alcohol (0-10) mg/dL Accuchecks Date 11/29/24 Date 11/29/24 Time 09:19 Time 09:19 - Radiology Impressions Radiology Exams & Impressions: Radiology Procedures Category Date Time Status CAROTID BILATERAL [US] Stat Exams 12/01/24 08:00 Stop Req CAROTID BILATERAL [US] Stat Exams 12/01/24 14:01 Ordered ECHO W/2D AND DOPPLER [US] Stat Exams 12/01/24 08:00 Ordered HEAD WITHOUT CONTRAST [CT] Stat Exams 11/29/24 09:16 Completed MRA BRAIN WITH CONTRAST [MRI] Routine Exams 12/01/24 07:00 Ordered MRA BRAIN WITH CONTRAST [MRI] Stat Exams 12/01/24 08:00 Stop Req MRA NECK WITH CONTRAST [MRI] Stat Exams 12/01/24 07:00 Stop Req MRI BRAIN W/O CONTRAST [MRI] Routine Exams 12/01/24 16:00 Ordered - Other Procedures and Tests Respiratory Therapy 11/29/24 13:24 EKG REPEAT IN AM 12/01/24 08:00 EEG 41-60 Minutes (Normal) ONCE Telemedicine Encounter - Telemedicine Encounter Telemedicine Encounter: "The entirety of this encounter was performed via Telemedicine" This visit was performed using real-time audio and video connection between my location and thepatients locationwith the assistance of a surrogateat the patients location. Written or verbal consent was obtained from the patient/guardian to perform [place]. Any patient questions regarding the telemedicine interaction were answered. SUDHAKAR Encounter - SUDHAKAR Encounter Attestation SUDHAKAR Encounter Attestation: "IhmatthieupersonalRICHELLE Cummins andhavediscussed pertinent aspects of their care with Vito Cartwright agree with the history, physical exam (any modifications based on my personal exam will be noted below), assessment, and plan as outlined in original note. Please see immediately below for my summary of findings and additional assessment and plan along with any meaningful corrections/explanations to the Subjective/Objective portions of the SUDHAKAR note will be noted." My portion of the encounter took place via telemedicine. -Patient presenting with symptoms of transient global amnesia. Neurology consulted and recommend work up for TIA in addition to EEG, and daily aspirin/statin. Patient has a history of migraines however they have become much less frequent since menopause and have not been associated with true amnesia like this. Will continue to monitor patient and obtain MRI/MRA and EEG on sunday.
[2024-11-29] MEDS ORDERED: LIPITOR 40MG ONE (12:40)
[2024-11-29] MEDS: Ecotrin 325 MG PO ONE (12:50)
[2024-11-29] MEDS ORDERED: TYLENOL 325 MG PO PRN (13:24)
[2024-11-29] MEDS ORDERED: Zofran 4 MG/2 ML VIAL IV PRN (13:24)
[2024-11-29] MEDS: LIPITOR 40MG PO STA (15:33)
[2024-11-29] MEDS: MOTRIN 400 MG PO PRN (16:30)
--- NOTE | 2024-11-30 05:09 | PCM.NOTE ---
Date and Time: 11/30/24 2369 Subjective Assessment: is a 58 year old female with a past medical history significant only for arthritis and chronic back pain ( receives steroid injections at pain management in [place]), who presented to the ED 11/29/24 accompanied by her spouse with acute onset of anterograde amnesia. She was last known well at approximately 11:00 PM on 11/28/2024. Her is present during interview and states that he noted that the patient was forgetful and exhibited signs of confusion after returning home from his exercise class. Notably, she had left the home in her vehicle and returned, but she has no recollection of driving, leaving, or returning. 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 She subsequently told her spouse, I dont feel right, and could not recall the conversation they had shortly afterward. She remembers only being told she was going to the hospital, with her next memory being of her transport to get her CT scan. She stated during my interview that she felt like a fog was over her and now it is lifting and she is starting to recall tiny bits of information. On initial evaluation, the patient denied chest pain, shortness of breath, headache, focal neurological deficits, or visual disturbances. She is alert, speaking clearly, and following commands. Her National Institutes of Health Stroke Scale (NIHSS) score was 0, indicating no objective neurological deficits at the time of evaluation. Her vital signs were stable but notable for elevated systolic blood pressure, peaking at 180/81 mmHg. She was mildly tachypneic on arrival with otherwise normal oxygenation and heart rate. Initial laboratory evaluation was largely unremarkable, except for a mildly elevated total bilirubin of 1.9 mg/dL. Urinalysis showed small leukocytes, suggesting a possible subclinical urinary tract infection; however, the clinical relevance of this finding remains unclear in the absence of dysuria, fever, or other systemic signs of infection. A urine drug screen was negative. EKG revealed a sinus rhythm at a rate of 78 bpm, normal QRS duration and axis, and a QTc of 444 ms. There was a short UT interval noted, but no acute ischemic changes were present. Head CT demonstrated no evidence of acute intracranial hem orrhage, extra-axial fluid collection, or parenchymal hypodensity to suggest acute ischemic stroke. Findings were reviewed and confirmed by the attending radiologist. Teleneurology was consulted, and Dr. Alston evaluated the patient via telehealth. She concurred with the clinical impression of transient global amnesia (TGA), potentially migrainous in origin. Given the benign neurological exam and return to baseline mentation, Dr. Alston did not believe the presentation was consistent with transient ischemic attack (TIA) or seizure. Nonetheless, due to the diagnostic uncertainty and vascular risk, she recommended a brief period of observation and further evaluation including MRI/MRA of the brain, EEG, carotid Doppler ultrasonography, and transthoracic echocardiography. She also advised initiating aspirin therapy and a statin but did not feel antiplatelet therapy with clopidogrel (Plavix) was indicated. Patient currently declines the statin. Labs: ALEJANDRA, ESR, A1c, lipid, homocysteine, b12, 325mg aspirin today- continue with 81mg daily. Statin- patient declined. Given concerns about the potential delay in outpatient testing and diagnostic workup, the patient will be admitted to observation for expedited completion of the above studies on Sunday and continued monitoring. Her condition remains stable and she has returned to baseline cognitive status. If symptoms occur- will need to repeat CT with CTA head and neck if prior to MRI availability 11/30/24: No overnight events reported. The patients symptoms have fully resolved. Patient is A&O x 3 with short/senior care memory intact. She currently denies headache, dizziness, visual changes, nausea, vomiting, chest pain, shortness of breath, abdominal pain, or any other new concerns. Vitals and labs remain stable. This episode is suspected to be transient global amnesia, possibly triggered by a migraine, based on her presentation and history. She is currently awaiting further imaging (MRI/MRA), which is scheduled for 12/01/24 due to limited availability. Carotid Doppler and echocardiogram have also been ordered to complete the workup. Labs were reviewed with the patient, and a statin was recommended, but she has chosen to decline for now after discussion. Neurology will be re-consulted once imaging is completed to help guide next steps. No signs of infection or other systemic illness at this time. 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, normal mood/affect, nml station & gait Skin Exam: normal color Eye Exam: PERRL Ears, Nose, Throat Exam: normal ENT inspection Neck Exam: normal inspection Respiratory Exam: normal breath sounds, lungs clear Cardiovascular Exam: regular rate/rhythm, normal heart sounds Gastrointestinal/Abdomen Exam: soft, normal bowel sounds Extremity Exam: normal inspection Back Exam: normal inspection Pelvic Exam: deferred Rectal Exam: deferred Objective Data Vital Signs: Vital Signs - 24 hr Temp Pulse Resp BP BP Pulse Ox 11/30/24 04:00 97.0 F 84 18 125/54 96 11/29/24 23:18 97.3 F 84 16 133/61 95 11/29/24 19:53 97.7 F 92 H 20 132/60 96 11/29/24 17:23 98.8 F 89 16 144/75 94 L 11/29/24 15:49 99.3 F 75 14 147/70 94 L 11/29/24 13:23 101 H 16 170/82 94 L 11/29/24 13:00 88 150/81 11/29/24 12:30 83 14 168/69 97 11/29/24 12:00 86 13 161/71 97 11/29/24 11:41 77 17 166/79 97 11/29/24 11:30 84 18 142/52 97 11/29/24 11:20 88 27 H 169/75 98 11/29/24 11:10 89 17 174/98 97 11/29/24 10:50 83 18 180/81 99 11/29/24 10:40 91 H 33 H 169/80 99 11/29/24 10:30 86 24 180/76 99 11/29/24 10:29 92 H 22 97 11/29/24 10:20 81 27 H 97 11/29/24 10:10 76 17 99 11/29/24 10:00 84 22 99 11/29/24 09:51 83 20 97 11/29/24 09:33 85 16 177/70 99 11/29/24 09:30 87 24 165/102 98 11/29/24 09:27 98 11/29/24 09:19 97.7 F 94 H 17 177/99 98 11/29/24 09:18 97 H 32 H 177/99 Pain Assessment - Last Documented Pain Intensity 1 Pain Scale Used 0-10 Pain Scale Intake and Output: Intake & Output 11/27/24 11/28/24 11/29/24 11/30/24 11:59 11:59 11:59 11:59 Intake Total 720 Balance 720 Weight 71.9 kg 70 kg Lab Results: Lab Results-Last 24 Hours 11/29/24 11/29/24 11/29/24 Range/Units 02:15 02:15 02:15 WBC (3.98-10.04) x10^3/uL RBC (3.93-5.22) x10^6/uL Hgb (11.2-15.7) g/dL Hct (34.1-44.9) % MCV (79.4-94.8) fL MCH (25.6-32.2) pg MCHC (32.2-35.5) g/dL RDW (11.7-14.4) % Plt Count (182-369) x10^3/uL MPV (9.4-12.3) fL Gran % (34.0-71.1) % Immature Gran % (Auto) (0.001-0.429) % Nucleat RBC Rel Count (0.00-0.2) % Eos # (Auto) (0.04-0.36) x10^3/uL Immature Gran # (Auto) (0.001-0.031) x10^3u/L Absolute Lymphs (auto) (1.18-3.74) x10^3/uL Absolute Monos (auto) (0.24-0.86) x10^3/uL Absolute Nucleated RBC (0.00-0.012) x10^3u/L Lymphocytes % (19.3-51.7) % Monocytes % (4.7-12.5) % Eosinophils % (0.7-5.8) % Basophils % (0.1-1.2) % Absolute Granulocytes (1.56-6.13) x10^3/uL Basophils # (0.01-0.08) x10^3/uL ESR 20 (0-20) mm/hr Sodium (135-145) mmol/L Potassium (3.5-5.1) mmol/L Chloride (98-107) mmol/L Carbon Dioxide (22-30) mmol/L Anion Gap (5-15) MEQ/L BUN (7-17) mg/dL Creatinine (0.52-1.04) mg/dL Estimated GFR ML/MIN Glucose (74-106) mg/dL POC Glucometer (74 to 106) mg/dL Hemoglobin A1c 4.67 (4.5-6.0) % Lactic Acid (0.4-2.0) Calcium (8.4-10.2) mg/dL Magnesium (1.6-2.3) mg/dL Total Bilirubin (0.2-1.3) mg/dL AST (14-36) U/L ALT (0-35) U/L Alkaline Phosphatase (38-126) U/L Troponin I (0.000-0.033) ng/mL Serum Total Protein (6.3-8.2) g/dL Albumin (3.5-5.0) g/dL Vitamin B12 331 (239-931) pg/mL Free T4 (0.78-2.19) ng/dL TSH 3rd Generation (0.470-4.680) mIU/L Urine Color (Yellow) Urine Appearance (Clear) Urine pH (4.6-8.0) Ur Specific Tyler (1.005-1.030) Urine Protein (Negative) Urine Glucose (UA) (Negative) mg/dL Urine Ketones (Negative) Urine Blood (Negative) Urine Nitrite (Negative) Urine Bilirubin (Negative) Urine Urobilinogen (0.2) mg/dL Ur Leukocyte Esterase (Negative) U Hyaline Cast (Auto) (0-2) /LPF Urine Microscopic RBC (0-5) /HPF Urine Microscopic WBC (0-5) /HPF Ur Epithelial Cells (None Seen) /HPF Urine Bacteria (None Seen) /HPF Urine Culture Reflexed (NO) Salicylates (2-20) mg/dL Urine Opiates Level (NEGATIVE) Ur Methadone (NEGATIVE) Acetaminophen (10-30) ug/ml Urine Barbiturates (NEGATIVE) Ur Phencyclidine (PCP) (NEGATIVE) Urine Amphetamine (NEGATIVE) U Benzodiazepine Level (NEGATIVE) Urine Cocaine (NEGATIVE) Urine Marijuana (THC) (NEGATIVE) Ethyl Alcohol (0-10) mg/dL 11/29/24 11/29/24 11/29/24 Range/Units 09:19 09:27 09:56 WBC 5.1 (3.98-10.04) x10^3/uL RBC 4.83 (3.93-5.22) x10^6/uL Hgb 15.2 (11.2-15.7) g/dL Hct 44.0 (34.1-44.9) % MCV 91.1 (79.4-94.8) fL MCH 31.5 (25.6-32.2) pg MCHC 34.5 (32.2-35.5) g/dL RDW 12.3 (11.7-14.4) % Plt Count 191 (182-369) x10^3/uL MPV 9.9 (9.4-12.3) fL Gran % 67.8 (34.0-71.1) % Immature Gran % (Auto) 0.4 (0.001-0.429) % Nucleat RBC Rel Count 0.0 (0.00-0.2) % Eos # (Auto) 0.11 (0.04-0.36) x10^3/uL Immature Gran # (Auto) 0.02 (0.001-0.031) x10^3u/L Absolute Lymphs (auto) 1.09 L (1.18-3.74) x10^3/uL Absolute Monos (auto) 0.39 (0.24-0.86) x10^3/uL Absolute Nucleated RBC 0.00 (0.00-0.012) x10^3u/L Lymphocytes % 21.4 (19.3-51.7) % Monocytes % 7.6 (4.7-12.5) % Eosinophils % 2.2 (0.7-5.8) % Basophils % 0.6 (0.1-1.2) % Absolute Granulocytes 3.46 (1.56-6.13) x10^3/uL Basophils # 0.03 (0.01-0.08) x10^3/uL ESR (0-20) mm/hr Sodium (135-145) mmol/L Potassium (3.5-5.1) mmol/L Chloride (98-107) mmol/L Carbon Dioxide (22-30) mmol/L Anion Gap (5-15) MEQ/L BUN (7-17) mg/dL Creatinine (0.52-1.04) mg/dL Estimated GFR ML/MIN Glucose (74-106) mg/dL POC Glucometer 115 H (74 to 106) mg/dL Hemoglobin A1c (4.5-6.0) % Lactic Acid 1.9 (0.4-2.0) Calcium (8.4-10.2) mg/dL Magnesium (1.6-2.3) mg/dL Total Bilirubin (0.2-1.3) mg/dL AST (14-36) U/L ALT (0-35) U/L Alkaline Phosphatase (38-126) U/L Troponin I (0.000-0.033) ng/mL Serum Total Protein (6.3-8.2) g/dL Albumin (3.5-5.0) g/dL Vitamin B12 (239-931) pg/mL Free T4 (0.78-2.19) ng/dL TSH 3rd Generation (0.470-4.680) mIU/L Urine Color (Yellow) Urine Appearance (Clear) Urine pH (4.6-8.0) Ur Specific Tyler (1.005-1.030) Urine Protein (Negative) Urine Glucose (UA) (Negative) mg/dL Urine Ketones (Negative) Urine Blood (Negative) Urine Nitrite (Negative) Urine Bilirubin (Negative) Urine Urobilinogen (0.2) mg/dL Ur Leukocyte Esterase (Negative) U Hyaline Cast (Auto) (0-2) /LPF Urine Microscopic RBC (0-5) /HPF Urine Microscopic WBC (0-5) /HPF Ur Epithelial Cells (None Seen) /HPF Urine Bacteria (None Seen) /HPF Urine Culture Reflexed (NO) Salicylates (2-20) mg/dL Urine Opiates Level (NEGATIVE) Ur Methadone (NEGATIVE) Acetaminophen (10-30) ug/ml Urine Barbiturates (NEGATIVE) Ur Phencyclidine (PCP) (NEGATIVE) Urine Amphetamine (NEGATIVE) U Benzodiazepine Level (NEGATIVE) Urine Cocaine (NEGATIVE) Urine Marijuana (THC) (NEGATIVE) Ethyl Alcohol (0-10) mg/dL 11/29/24 11/29/24 11/29/24 Range/Units 09:56 09:56 09:56 WBC (3.98-10.04) x10^3/uL RBC (3.93-5.22) x10^6/uL Hgb (11.2-15.7) g/dL Hct (34.1-44.9) % MCV (79.4-94.8) fL MCH (25.6-32.2) pg MCHC (32.2-35.5) g/dL RDW (11.7-14.4) % Plt Count (182-369) x10^3/uL MPV (9.4-12.3) fL Gran % (34.0-71.1) % Immature Gran % (Auto) (0.001-0.429) % Nucleat RBC Rel Count (0.00-0.2) % Eos # (Auto) (0.04-0.36) x10^3/uL Immature Gran # (Auto) (0.001-0.031) x10^3u/L Absolute Lymphs (auto) (1.18-3.74) x10^3/uL Absolute Monos (auto) (0.24-0.86) x10^3/uL Absolute Nucleated RBC (0.00-0.012) x10^3u/L Lymphocytes % (19.3-51.7) % Monocytes % (4.7-12.5) % Eosinophils % (0.7-5.8) % Basophils % (0.1-1.2) % Absolute Granulocytes (1.56-6.13) x10^3/uL Basophils # (0.01-0.08) x10^3/uL ESR (0-20) mm/hr Sodium 139 (135-145) mmol/L Potassium 3.6 (3.5-5.1) mmol/L Chloride 105 (98-107) mmol/L Carbon Dioxide 26 (22-30) mmol/L Anion Gap 11.0 (5-15) MEQ/L BUN 17 (7-17) mg/dL Creatinine 0.80 (0.52-1.04) mg/dL Estimated GFR 84.3 ML/MIN Glucose 127 H (74-106) mg/dL POC Glucometer (74 to 106) mg/dL Hemoglobin A1c (4.5-6.0) % Lactic Acid (0.4-2.0) Calcium 9.7 (8.4-10.2) mg/dL Magnesium 1.9 (1.6-2.3) mg/dL Total Bilirubin 1.90 H (0.2-1.3) mg/dL AST 25 (14-36) U/L ALT 19 (0-35) U/L Alkaline Phosphatase 101 (38-126) U/L Troponin I (0.000-0.033) ng/mL Serum Total Protein 7.5 (6.3-8.2) g/dL Albumin 4.7 (3.5-5.0) g/dL Vitamin B12 (239-931) pg/mL Free T4 1.34 (0.78-2.19) ng/dL TSH 3rd Generation 1.343 (0.470-4.680) mIU/L Urine Color (Yellow) Urine Appearance (Clear) Urine pH (4.6-8.0) Ur Specific Tyler (1.005-1.030) Urine Protein (Negative) Urine Glucose (UA) (Negative) mg/dL Urine Ketones (Negative) Urine Blood (Negative) Urine Nitrite (Negative) Urine Bilirubin (Negative) Urine Urobilinogen (0.2) mg/dL Ur Leukocyte Esterase (Negative) U Hyaline Cast (Auto) (0-2) /LPF Urine Microscopic RBC (0-5) /HPF Urine Microscopic WBC (0-5) /HPF Ur Epithelial Cells (None Seen) /HPF Urine Bacteria (None Seen) /HPF Urine Culture Reflexed (NO) Salicylates < 1.0 L (2-20) mg/dL Urine Opiates Level (NEGATIVE) Ur Methadone (NEGATIVE) Acetaminophen < 10 L (10-30) ug/ml Urine Barbiturates (NEGATIVE) Ur Phencyclidine (PCP) (NEGATIVE) Urine Amphetamine (NEGATIVE) U Benzodiazepine Level (NEGATIVE) Urine Cocaine (NEGATIVE) Urine Marijuana (THC) (NEGATIVE) Ethyl Alcohol < 10 (0-10) mg/dL 11/29/24 11/29/24 11/29/24 Range/Units 09:56 10:20 10:20 WBC (3.98-10.04) x10^3/uL RBC (3.93-5.22) x10^6/uL Hgb (11.2-15.7) g/dL Hct (34.1-44.9) % MCV (79.4-94.8) fL MCH (25.6-32.2) pg MCHC (32.2-35.5) g/dL RDW (11.7-14.4) % Plt Count (182-369) x10^3/uL MPV (9.4-12.3) fL Gran % (34.0-71.1) % Immature Gran % (Auto) (0.001-0.429) % Nucleat RBC Rel Count (0.00-0.2) % Eos # (Auto) (0.04-0.36) x10^3/uL Immature Gran # (Auto) (0.001-0.031) x10^3u/L Absolute Lymphs (auto) (1.18-3.74) x10^3/uL Absolute Monos (auto) (0.24-0.86) x10^3/uL Absolute Nucleated RBC (0.00-0.012) x10^3u/L Lymphocytes % (19.3-51.7) % Monocytes % (4.7-12.5) % Eosinophils % (0.7-5.8) % Basophils % (0.1-1.2) % Absolute Granulocytes (1.56-6.13) x10^3/uL Basophils # (0.01-0.08) x10^3/uL ESR (0-20) mm/hr Sodium (135-145) mmol/L Potassium (3.5-5.1) mmol/L Chloride (98-107) mmol/L Carbon Dioxide (22-30) mmol/L Anion Gap (5-15) MEQ/L BUN (7-17) mg/dL Creatinine (0.52-1.04) mg/dL Estimated GFR ML/MIN Glucose (74-106) mg/dL POC Glucometer (74 to 106) mg/dL Hemoglobin A1c (4.5-6.0) % Lactic Acid (0.4-2.0) Calcium (8.4-10.2) mg/dL Magnesium (1.6-2.3) mg/dL Total Bilirubin (0.2-1.3) mg/dL AST (14-36) U/L ALT (0-35) U/L Alkaline Phosphatase (38-126) U/L Troponin I < 0.012 (0.000-0.033) ng/mL Serum Total Protein (6.3-8.2) g/dL Albumin (3.5-5.0) g/dL Vitamin B12 (239-931) pg/mL Free T4 (0.78-2.19) ng/dL TSH 3rd Generation (0.470-4.680) mIU/L Urine Color Yellow (Yellow) Urine Appearance Clear (Clear) Urine pH 5.0 (4.6-8.0) Ur Specific Tyler 1.025 (1.005-1.030) Urine Protein Trace A (Negative) Urine Glucose (UA) Negative (Negative) mg/dL Urine Ketones Trace A (Negative) Urine Blood Negative (Negative) Urine Nitrite Negative (Negative) Urine Bilirubin Negative (Negative) Urine Urobilinogen 0.2 (0.2) mg/dL Ur Leukocyte Esterase Small A (Negative) U Hyaline Cast (Auto) NONE SEEN (0-2) /LPF Urine Microscopic RBC 0-2 (0-5) /HPF Urine Microscopic WBC 0-2 (0-5) /HPF Ur Epithelial Cells Rare (None Seen) /HPF Urine Bacteria None Seen (None Seen) /HPF Urine Culture Reflexed NO (NO) Salicylates (2-20) mg/dL Urine Opiates Level NEGATIVE (NEGATIVE) Ur Methadone NEGATIVE (NEGATIVE) Acetaminophen (10-30) ug/ml Urine Barbiturates NEGATIVE (NEGATIVE) Ur Phencyclidine (PCP) NEGATIVE (NEGATIVE) Urine Amphetamine NEGATIVE (NEGATIVE) U Benzodiazepine Level NEGATIVE (NEGATIVE) Urine Cocaine NEGATIVE (NEGATIVE) Urine Marijuana (THC) NEGATIVE (NEGATIVE) Ethyl Alcohol (0-10) mg/dL 11/29/24 11/29/24 Range/Units 14:20 18:05 WBC (3.98-10.04) x10^3/uL RBC (3.93-5.22) x10^6/uL Hgb (11.2-15.7) g/dL Hct (34.1-44.9) % MCV (79.4-94.8) fL MCH (25.6-32.2) pg MCHC (32.2-35.5) g/dL RDW (11.7-14.4) % Plt Count (182-369) x10^3/uL MPV (9.4-12.3) fL Gran % (34.0-71.1) % Immature Gran % (Auto) (0.001-0.429) % Nucleat RBC Rel Count (0.00-0.2) % Eos # (Auto) (0.04-0.36) x10^3/uL Immature Gran # (Auto) (0.001-0.031) x10^3u/L Absolute Lymphs (auto) (1.18-3.74) x10^3/uL Absolute Monos (auto) (0.24-0.86) x10^3/uL Absolute Nucleated RBC (0.00-0.012) x10^3u/L Lymphocytes % (19.3-51.7) % Monocytes % (4.7-12.5) % Eosinophils % (0.7-5.8) % Basophils % (0.1-1.2) % Absolute Granulocytes (1.56-6.13) x10^3/uL Basophils # (0.01-0.08) x10^3/uL ESR (0-20) mm/hr Sodium (135-145) mmol/L Potassium (3.5-5.1) mmol/L Chloride (98-107) mmol/L Carbon Dioxide (22-30) mmol/L Anion Gap (5-15) MEQ/L BUN (7-17) mg/dL Creatinine (0.52-1.04) mg/dL Estimated GFR ML/MIN Glucose (74-106) mg/dL POC Glucometer (74 to 106) mg/dL Hemoglobin A1c (4.5-6.0) % Lactic Acid (0.4-2.0) Calcium (8.4-10.2) mg/dL Magnesium (1.6-2.3) mg/dL Total Bilirubin (0.2-1.3) mg/dL AST (14-36) U/L ALT (0-35) U/L Alkaline Phosphatase (38-126) U/L Troponin I < 0.012 < 0.012 (0.000-0.033) ng/mL Serum Total Protein (6.3-8.2) g/dL Albumin (3.5-5.0) g/dL Vitamin B12 (239-931) pg/mL Free T4 (0.78-2.19) ng/dL TSH 3rd Generation (0.470-4.680) mIU/L Urine Color (Yellow) Urine Appearance (Clear) Urine pH (4.6-8.0) Ur Specific Tyler (1.005-1.030) Urine Protein (Negative) Urine Glucose (UA) (Negative) mg/dL Urine Ketones (Negative) Urine Blood (Negative) Urine Nitrite (Negative) Urine Bilirubin (Negative) Urine Urobilinogen (0.2) mg/dL Ur Leukocyte Esterase (Negative) U Hyaline Cast (Auto) (0-2) /LPF Urine Microscopic RBC (0-5) /HPF Urine Microscopic WBC (0-5) /HPF Ur Epithelial Cells (None Seen) /HPF Urine Bacteria (None Seen) /HPF Urine Culture Reflexed (NO) Salicylates (2-20) mg/dL Urine Opiates Level (NEGATIVE) Ur Methadone (NEGATIVE) Acetaminophen (10-30) ug/ml Urine Barbiturates (NEGATIVE) Ur Phencyclidine (PCP) (NEGATIVE) Urine Amphetamine (NEGATIVE) U Benzodiazepine Level (NEGATIVE) Urine Cocaine (NEGATIVE) Urine Marijuana (THC) (NEGATIVE) Ethyl Alcohol (0-10) mg/dL Radiology Exams: Radiology Procedures Category Date Time Status CAROTID BILATERAL [US] Stat Exams 12/01/24 08:00 Stop Req CAROTID BILATERAL [US] Stat Exams 12/01/24 14:01 Ordered ECHO W/2D AND DOPPLER [US] Stat Exams 12/01/24 08:00 Ordered HEAD WITHOUT CONTRAST [CT] Stat Exams 11/29/24 09:16 Completed MRA BRAIN WITH CONTRAST [MRI] Routine Exams 12/01/24 07:00 Ordered MRA BRAIN WITH CONTRAST [MRI] Stat Exams 12/01/24 08:00 Stop Req MRA NECK WITH CONTRAST [MRI] Stat Exams 12/01/24 07:00 Stop Req MRI BRAIN W/O CONTRAST [MRI] Routine Exams 12/01/24 16:00 Ordered Medications: Medications Generic Name Dose Route Start Last Admin Trade Name Freq PRN Reason Stop Dose Admin Acetaminophen 650 mg 11/29/24 13:24 Acetaminophen 325 Mg Tablet PO 12/29/24 13:23 Q4H PRN PRN PAIN, FEVER, HEADACHE Aspirin 81 mg 11/30/24 10:00 Aspirin 81 Mg Tablet.Ec PO 12/30/24 09:59 QAM [facility] Ibuprofen 400 mg 11/29/24 14:04 11/29/24 22:33 Ibuprofen 400 Mg Tablet PO 12/29/24 14:03 400 mg QID PRN PRN Administration PAIN Ondansetron HCl 4 mg 11/29/24 13:24 Ondansetron Hcl 4 Mg/2 Ml Vial IV 12/29/24 13:23 Q6H PRN PRN NAUSEA/VOMITING Discontinued Medications Generic Name Dose Route Start Last Admin Trade Name Johnq PRN Reason Stop Dose Admin Aspirin 325 mg 11/29/24 12:17 11/29/24 12:50 Aspirin 325 Mg Tablet.Ec PO 11/29/24 12:18 325 mg STAT ONE Administration Aspirin 325 mg 11/30/24 10:00 Aspirin 325 Mg Tablet.Ec PO 12/30/24 09:59 QAM [facility] Atorvastatin Calcium 40 mg 11/29/24 12:18 11/29/24 15:33 Atorvastatin Calcium 40 Mg Tablet PO 11/29/24 12:19 Not Given STAT STA Atorvastatin Calcium Confirm 11/29/24 12:40 Atorvastatin Calcium 40 Mg Tablet Administered 11/29/24 12:41 Dose 40 mg .ROUTE .STK-MED ONE Atorvastatin Calcium 40 mg 11/30/24 10:00 Atorvastatin Calcium 40 Mg Tablet PO 12/30/24 09:59 DAILY [facility] Ibuprofen 400 mg 11/29/24 11:06 11/29/24 11:56 Ibuprofen 400 Mg Tablet PO 11/29/24 11:07 Not Given STAT ONE Ibuprofen Confirm 11/29/24 11:08 Ibuprofen 400 Mg Tablet Administered 11/29/24 11:09 Dose 400 mg .ROUTE .STK-MED ONE Ibuprofen 400 mg 11/29/24 12:40 11/29/24 15:33 Ibuprofen 400 Mg Tablet PO 11/29/24 12:41 Not Given STAT ONE Assessment/Plan (1) Transient global amnesia Current Visit: Yes Status: Acute Assessment & Plan: -Admit to observation for neurological monitoring -CT Head without contrast: No evidence of intra- or extra-axial hemorrhage; no hypodensities to suggest acute ischemia; no mass effect or midline shift. -EKG: Sinus rhythm, rate 78 bpm, normal axis, normal QRS duration, short UT interval, QTc 444 ms; no ST-T wave changes indicative of acute ischemia -Tele-Neuro - Clinical picture consistent with transient global amnesia, possibly migraine-associated -No indication for thrombolysis or acute stroke intervention -CMP/CBC reviewed - unremarkable -Mild tachypnea and elevated systolic blood pressure (177 mmHg) noted on presentation, resolved without pharmacologic intervention -UA with small leukocyte- no signs of overt UTI -Admit to observation with neurological and vascular monitoring. -Initiate aspirin 81 mg daily and begin statin therapy for secondary prevention - patient declines statin -No indication for Plavix at this time. -Further diagnostic evaluation can be performed during observation stay on Sunday per neuro recommendations: Echocardiogram, EEG, Carotid Doppler ultrasound,MRI/MRA of the brain- Neuro will continue to follow- agree with plan -Patient currently at baseline-neurologically intact -TSH WNL -UDS negative -Labs: ALEJANDRA, ESR, A1c, lipid, homocysteine, b12 -If symptoms reoccur reconsult neuro with [facility] Head 11/30: -A1c, TSH, ESR, vitamin B, B12 reviewed and WNL -Lipid profile with total choles/LDL elevated- advised statin- patient declines -No further events- neuro-imaging w/ tele-neuro follow up pending -continue ASA 81mg daily Code(s): G45.4 - TRANSIENT GLOBAL AMNESIA (2) Altered mental status Current Visit: Yes Status: Acute Assessment & Plan: -see TGA above Code(s): R41.82 - ALTERED MENTAL STATUS, UNSPECIFIED HLD -as stated above (3) Arthritis Current Visit: Yes Status: Acute Assessment & Plan: -continue home regimen Code(s): M19.90 - UNSPECIFIED OSTEOARTHRITIS, UNSPECIFIED SITE (4) Chronic back pain Current Visit: Yes Status: Acute Assessment & Plan: -Under the care of pain management in [place]- patient receives steroid injections most recently last week Code(s): M54.9 - DORSALGIA, UNSPECIFIED; G89.29 - OTHER CHRONIC PAIN (5) Hypertension Current Visit: Yes Status: Acute Assessment & Plan: -Monitor blood pressure throughout observation stay -Consider initiating antihypertensive therapy if BP remains elevated 11/30: -BP stable VTE: SCD/ASA Dispo: 2-3 days Code status: Full Code Code(s): G45.4 - TRANSIENT GLOBAL AMNESIA (2) Altered mental status Current Visit: Yes Status: Acute Code(s): R41.82 - ALTERED MENTAL STATUS, UNSPECIFIED (3) Arthritis Current Visit: Yes Status: Acute Code(s): M19.90 - UNSPECIFIED OSTEOARTHR ITIS, UNSPECIFIED SITE (4) Chronic back pain Current Visit: Yes Status: Acute Code(s): M54.9 - DORSALGIA, UNSPECIFIED; G89.29 - OTHER CHRONIC PAIN (5) Hypertension Current Visit: Yes Status: Acute Code(s): I10 - ESSENTIAL (PRIMARY) HYPERTENSION
[2024-11-30 05:48] LABS: BASOPHIL % 0.8 % (0.1-1.2); Basophil (Absolute #) 0.03 x10^3/uL (0.01-0.08); Eosinophil % 4.3 % (0.7-5.8); Eosinophil (Absolute #) 0.17 x10^3/uL (0.04-0.36); Hematocrit 41.9 % (34.1-44.9); Hemoglobin 14.1 g/dL (11.2-15.7); IMMATURE GRAN # 0.01 x10^3u/L (0.001-0.031); IMMATURE GRAN % 0.3 % (0.001-0.429); Lymphocyte (Absolute #) 1.19 x10^3/uL (1.18-3.74); Lymphocytes % 30.1 % (19.3-51.7); Mean Cell Volume 92.1 fL (79.4-94.8); Mean Corpuscular Hgb Concent. 33.7 g/dL (32.2-35.5); Mean Platelet Volume 9.8 fL (9.4-12.3); Monocyte (Absolute #) 0.35 x10^3/uL (0.24-0.86); Monocytes % 8.9 % (4.7-12.5); Neutrophil % 55.6 % (34.0-71.1); Platelet Count 180 x10^3/uL (182-369); Red Blood Count 4.55 x10^6/uL (3.93-5.22); Red Cell Distribution Width 12.5 % (11.7-14.4)
[2024-11-30 05:58] LABS: ANION GAP 8.7 MEQ/L (5-15); BILIRUBIN,TOTAL 1.8 mg/dL (0.2-1.3); Calcium 9.3 mg/dL (8.4-10.2); Creatinine 1 0.72 mg/dL (0.52-1.04); EST GLOMERULAR FILTRATION RATE 95.7 ML/MIN; Potassium 3.9 mmol/L (3.5-5.1); Total Protein 6.4 g/dL (6.3-8.2)
[2024-11-30] MEDS ORDERED: BABY ASPIRIN 81 MG CHEW PO SCH (10:00)
[2024-11-30] MEDS ORDERED: Ecotrin 325 MG PO SCH (10:00)
[2024-11-30] MEDS ORDERED: LIPITOR 40MG PO SCH (10:00)
[2024-11-30] MEDS: ECOTRIN 81 MG PO SCH (11:28)
[2024-12-01 05:00] LABS: Absolute Neutrophil Ct (ANC) 2.38 x10^3/uL (1.56-6.13); BASOPHIL % 0.7 % (0.1-1.2); Basophil (Absolute #) 0.03 x10^3/uL (0.01-0.08); Eosinophil % 4.3 % (0.7-5.8); Eosinophil (Absolute #) 0.18 x10^3/uL (0.04-0.36); Hematocrit 42.6 % (34.1-44.9); Hemoglobin 13.9 g/dL (11.2-15.7); IMMATURE GRAN # 0.01 x10^3u/L (0.001-0.031); IMMATURE GRAN % 0.2 % (0.001-0.429); Lymphocyte (Absolute #) 1.26 x10^3/uL (1.18-3.74); Lymphocytes % 29.8 % (19.3-51.7); Mean Cell Volume 93.4 fL (79.4-94.8); Mean Corpuscular Hemoglobin 30.5 pg (25.6-32.2); Mean Corpuscular Hgb Concent. 32.6 g/dL (32.2-35.5); Monocyte (Absolute #) 0.37 x10^3/uL (0.24-0.86); Monocytes % 8.7 % (4.7-12.5); Neutrophil % 56.3 % (34.0-71.1); Platelet Count 191 x10^3/uL (182-369); Red Blood Count 4.56 x10^6/uL (3.93-5.22); Red Cell Distribution Width 12.6 % (11.7-14.4); White Blood Count 4.2 x10^3/uL (3.98-10.04)
[2024-12-01 05:15] LABS: ANION GAP 11.2 MEQ/L (5-15); BILIRUBIN,TOTAL 1.6 mg/dL (0.2-1.3); Calcium 9.7 mg/dL (8.4-10.2); Creatinine 1 0.69 mg/dL (0.52-1.04); EST GLOMERULAR FILTRATION RATE 99.3 ML/MIN; Potassium 3.8 mmol/L (3.5-5.1); Total Protein 6.5 g/dL (6.3-8.2)
--- NOTE | 2024-12-01 09:28 | PCM.DS ---
Discharge Summary Date of Admission: 11/29/24 13:19 Date of Discharge: 12/01/24 Admitting Physician: SHAMIKA OLMSTEAD MD Primary Care Provider: TRINO HIGUERA R[place] Allergies Allergies nitrous oxide Allergy (Verified 11/29/24 15:47) tachycardia Hospital Summary - Hospital Course Hospital Course: Ms. BATRES is a 58-year-old female with a history of arthritis and chronic back pain (managed with steroid injections) who presented to the ED on 11/29/24 with acute onset of anterograde amnesia. Her symptoms began late on 11/28/24 and were noted by her spouse after she returned home confused, with no recollection of a brief trip she had taken by car. She described a "fog" over her memory that has since resolved, with gradual return of recollection. On evaluation, she was alert and oriented with normal speech and no focal neurological deficits. NIH Stroke Scale was 0. Vitals were stable aside from elevated systolic blood pressure (peak 180 mmHg) and mild tachypnea. Labs were unremarkable except for mildly elevated bilirubin (1.9 mg/dL) and trace leukocytes on UA without clinical signs of infection. Urine drug screen was negative. EKG showed sinus rhythm with short [place] interval, no acute changes. Head CT was negative for acute pathology. Teleneurology consultation by Dr. Alston supported a diagnosis of transient global amnesia (TGA), possibly migrainous in origin. Given the benign exam and return to baseline, TIA and seizure were deemed unlikely. Recommendations included observation, MRI/MRA brain, EEG, carotid Doppler, and echocardiogram. Aspirin was initiated (325 mg loading dose, continued at 81 mg daily), and a statin was recommended but declined by the patient. Hospital Course: 11/30: No recurrence of symptoms. Patient fully oriented with intact memory. Denied new complaints. Remained hemodynamically stable. Awaiting imaging and workup. 12/01: Patient reports only mild headache, otherwise asymptomatic. Scheduled for MRI, MRA, EEG, echo, and carotid Doppler today. Neurology to be re-consulted after imaging. Patient expresses desire to be discharged home. Plan: Complete diagnostic workup today. Neurology follow-up post-imaging. Continue aspirin. Outpatient statin therapy deferred by patient. Discharge home if imaging is unremarkable and patient remains stable. - Vitals & Intake/Output Vital Signs: Vital Signs Temperature 97.9 F 12/01/24 07:27 Pulse Rate 88 05/19/25 07:27 Respiratory Rate 16 12/01/24 07:27 Blood Pressure 127/59 12/01/24 07:27 O2 Sat by Pulse Oximetry 94 L 12/01/24 07:27 Intake & Output: Intake & Output 11/28/24 11/29/24 11/30/24 12/01/24 11:59 11:59 11:59 11:59 Intake Total 840 640 Balance 840 640 Weight 71.9 kg 70 kg - Lab Result Diagrams: 12/01/24 04:52 12/01/24 04:52 Lab Results-Last 24 Hrs: Lab Results-Last 24 Hours 12/01/24 12/01/24 Range/Units 04:52 04:52 WBC 4.2 (3.98-10.04) x10^3/uL RBC 4.56 (3.93-5.22) x10^6/uL Hgb 13.9 (11.2-15.7) g/dL Hct 42.6 (34.1-44.9) % MCV 93.4 (79.4-94.8) fL MCH 30.5 (25.6-32.2) pg MCHC 32.6 (32.2-35.5) g/dL RDW 12.6 (11.7-14.4) % Plt Count 191 (182-369) x10^3/uL MPV 10.0 (9.4-12.3) fL Gran % 56.3 (34.0-71.1) % Immature Gran % (Auto) 0.2 (0.001-0.429) % Nucleat RBC Rel Count 0.0 (0.00-0.2) % Eos # (Auto) 0.18 (0.04-0.36) x10^3/uL Immature Gran # (Auto) 0.01 (0.001-0.031) x10^3u/L Absolute Lymphs (auto) 1.26 (1.18-3.74) x10^3/uL Absolute Monos (auto) 0.37 (0.24-0.86) x10^3/uL Absolute Nucleated RBC 0.00 (0.00-0.012) x10^3u/L Lymphocytes % 29.8 (19.3-51.7) % Monocytes % 8.7 (4.7-12.5) % Eosinophils % 4.3 (0.7-5.8) % Basophils % 0.7 (0.1-1.2) % Absolute Granulocytes 2.38 (1.56-6.13) x10^3/uL Basophils # 0.03 (0.01-0.08) x10^3/uL Sodium 139 (135-145) mmol/L Potassium 3.8 (3.5-5.1) mmol/L Chloride 106 (98-107) mmol/L Carbon Dioxide 25 (22-30) mmol/L Anion Gap 11.2 (5-15) MEQ/L BUN 19 H (7-17) mg/dL Creatinine 0.69 (0.52-1.04) mg/dL Estimated GFR 99.3 ML/MIN Glucose 98 (74-106) mg/dL Calcium 9.7 (8.4-10.2) mg/dL Total Bilirubin 1.60 H (0.2-1.3) mg/dL AST 23 (14-36) U/L ALT 14 (0-35) U/L Alkaline Phosphatase 74 (38-126) U/L Serum Total Protein 6.5 (6.3-8.2) g/dL Albumin 4.0 (3.5-5.0) g/dL Micro Results-Entire Visit: Microbiology 11/29/24 09:45 Blood Culture - Preliminary Blood 11/29/24 09:56 Blood Culture - Preliminary Blood - Radiology Exams Ordered Rad Exams-Entire Visit: Radiology Procedures Category Date Time Status CAROTID BILATERAL [US] Stat Exams 12/01/24 14:01 Ordered ECHO W/2D AND DOPPLER [US] Stat Exams 12/01/24 08:00 Ordered HEAD WITHOUT CONTRAST [CT] Stat Exams 11/29/24 09:16 Completed MRA BRAIN WITH CONTRAST [MRI] Routine Exams 12/01/24 07:00 Ordered MRA NECK WITH CONTRAST [MRI] Routine Exams 12/01/24 05:00 Ordered MRI BRAIN W/O CONTRAST [MRI] Routine Exams 12/01/24 16:00 Ordered - Procedures and Test Procedures and Tests throughout Hospitalization: Therapy Orders & Screens 11/29/24 13:24 EKG REPEAT IN AM Comment: 12/01/24 08:00 EEG 41-60 Minutes (Normal) ONCE Comment: Reason For Exam: Discharge Exam General Appearance: no apparent distress, alert Neurologic Exam: alert, oriented x 3, cooperative, normal mood/affect, nml cerebellar function, sensation nml, No motor deficits Eye Exam: PERRL, EOMI, eyes nml inspection Ears, Nose, Throat Exam: normal ENT inspection, pharynx normal, moist mucous membranes Neck Exam: normal inspection, non-tender, supple, full range of motion Respiratory Exam: normal breath sounds, lungs clear, No respiratory distress Cardiovascular Exam: regular rate/rhythm, normal heart sounds Gastrointestinal/Abdomen Exam: soft, No tenderness, No mass Pelvic Exam: deferred Rectal Exam: deferred Back Exam: normal inspection, normal range of motion, No CVA tenderness, No vertebral tenderness Extremity Exam: normal inspection, normal range of motion Skin Exam: normal color, warm, dry Final Diagnosis/Problem List - Final Discharge Diagnosis/Problem (1) Transient global amnesia Current Visit: Yes Status: Acute Assessment & Plan: - MRI, MRA, EEG, ECHO, Carotid duplex today - re-consult Neuro after results back Code(s): G45.4 - TRANSIENT GLOBAL AMNESIA (2) Altered mental status Current Visit: Yes Status: Resolved Assessment & Plan: - resolved Code(s): R41.82 - ALTERED MENTAL STATUS, UNSPECIFIED (3) Hyperlipidemia Current Visit: Yes Status: Acute Assessment & Plan: - Pt refused medication - Education provided on diet and exercise control Code(s): E78.5 - HYPERLIPIDEMIA, UNSPECIFIED (4) Arthritis Current Visit: Yes Status: Chronic Assessment & Plan: -continue home regimen Code(s): M19.90 - UNSPECIFIED OSTEOARTHRITIS, UNSPECIFIED SITE (5) Chronic back pain Current Visit: Yes Status: Acute Assessment & Plan: -Under the care of pain management in [place]- patient receives steroid injections most recently last week Code(s): M54.9 - DORSALGIA, UNSPECIFIED; G89.29 - OTHER CHRONIC PAIN (6) Hypertension Current Visit: Yes Status: Chronic Assessment & Plan: - BP stable - not on any meds Code(s): I10 - ESSENTIAL (PRIMARY) HYPERTENSION - Discharge Discharge Date: 12/01/24 Disposition: Home, Self-Care Condition: Stable Prescriptions: New Aspirin EC 81 mg [Ecotrin 81 mg] 81 mg PO QAM 30 Days #30 tablet Follow up with: TRINO HIGUERA MD [Primary Care Provider, [facility]]
--- NOTE | 2024-12-01 11:55 | XRAY ---
Indication: Altered mental status. Memory lapse. Sagittal, coronal, and axial MRI brain performed without contrast using T1, T2, FLAIR, diffusion, and ADC sequences. Comparison: None Ventriculosulcal pattern appears symmetric. Remote lacunar infarct right basal ganglia. No acute intracranial hemorrhage, abnormal extra-axial fluid collection, or mass effect. Diffusion images negative for recent disc signal. Fourth ventricle is midline without hydrocephalus. 7/8 cranial nerve complex bilaterally symmetric. Normal flow void signal within the major intracerebral circulation. Normal appearing craniocervical junction and sella turcica. Paranasal sinuses are clear. Impression: Remote lacunar infarct right basal ganglia. Remaining MRI brain without contrast exam is negative.
[2024-12-01 15:08] LABS: Homocyst(e)ine 12.4 umol/L (0.0-14.5)
--- NOTE | 2024-12-01 18:25 | PCM.NOTE ---
Date and Time: 12/01/241821 Subjective Assessment: Ms. BATRES is a 58-year-old female with a history of arthritis and chronic back pain (managed with steroid injections) who presented to the ED on 11/29/24 with acute onset of anterograde amnesia. Her symptoms began late on 11/28/24 and were noted by her spouse after she returned home confused, with no recollection of a brief trip she had taken by car. She described a "fog" over her memory that has since resolved, with gradual return of recollection. On evaluation, she was alert and oriented with normal speech and no focal neurological deficits. NIH Stroke Scale was 0. Vitals were stable aside from elevated systolic blood pressure (peak 180 mmHg) and mild tachypnea. Labs were unremarkable except for mildly elevated bilirubin (1.9 mg/dL) and trace leukocytes on UA without clinical signs of infection. Urine drug screen was negative. EKG showed sinus rhythm with short [place] interval, no acute changes. Head CT was negative for acute pathology. Teleneurology consultation by Dr. Alston supported a diagnosis of transient global amnesia (TGA), possibly migrainous in origin. Given the benign exam and return to baseline, TIA and seizure were deemed unlikely. Recommendations included observation, MRI/MRA brain, EEG, carotid Doppler, and echocardiogram. Aspirin was initiated (325 mg loading dose, continued at 81 mg daily), and a statin was recommended but declined by the patient. Hospital Course: 11/30: No recurrence of symptoms. Patient fully oriented with intact memory. Denied new complaints. Remained hemodynamically stable. Awaiting imaging and workup. 12/01: Patient reports only mild headache, otherwise asymptomatic. Scheduled for MRI, MRA, EEG, echo, and carotid Doppler today. Neurology to be re-consulted after imaging read. Patient expresses desire to be discharged home however imaging is not back therefore will need to stay another night and then re- consult neurology tomorrow per their request. - Review of Systems Constitutional: No Fever, No Chills Eyes: No Symptoms Ears, Nose, & Throat: No Symptoms Respiratory: No Cough, No Short Of Breath Cardiac: No Chest Pain, No Edema, No Syncope Abdominal/Gastrointestinal: No Abdominal Pain, No Nausea, No Vomiting, No Diarrhea Genitourinary Symptoms: No Dysuria Musculoskeletal: No Back Pain, No Neck Pain Skin: No Rash Neurological: Headache, No Dizziness, No Focal Weakness, No Sensory Changes Psychological: No Symptoms Endocrine: No Symptoms Hematologic/Lymphatic: No Symptoms Immunological/Allergic: No Symptoms Objective Exam General Appearance: no apparent distress, alert Neurologic Exam: alert, oriented x 3, cooperative, normal mood/affect, nml cerebellar function, sensation nml, No motor deficits Skin Exam: normal color, warm, dry Eye Exam: PERRL, EOMI, eyes nml inspection Ears, Nose, Throat Exam: normal ENT inspection, pharynx normal, moist mucous membranes Neck Exam: normal inspection, non-tender, supple, full range of motion Respiratory Exam: normal breath sounds, lungs clear, No respiratory distress Cardiovascular Exam: regular rate/rhythm, normal heart sounds Gastrointestinal/Abdomen Exam: soft, No tenderness, No mass Extremity Exam: normal inspection, normal range of motion Back Exam: normal inspection, normal range of motion, No CVA tenderness, No dixie tebral tenderness Pelvic Exam: deferred Rectal Exam: deferred Objective Data Vital Signs: Vital Signs - 24 hr Temp Pulse Resp BP Pulse Ox 12/01/24 16:00 97.6 F 82 16 124/60 93 L 12/01/24 11:40 98.2 F 80 16 155/72 94 L 12/01/24 07:27 97.9 F 88 16 127/59 94 L 12/01/24 04:00 97.3 F 70 16 120/57 98 11/30/24 23:12 97.2 F 82 17 135/60 96 11/30/24 20:00 97.2 F 84 18 128/71 97 Pain Assessment - Last Documented Pain Intensity 0 Pain Scale Used [facility] Intake and Output: Intake & Output 11/29/24 11/30/24 12/01/24 12/02/24 11:59 11:59 11:59 11:59 Intake Total 840 1220 960 Balance 840 1220 960 Weight 71.9 kg 70 kg Lab Results: Lab Results-Last 24 Hours 11/29/24 12/01/24 12/01/24 Range/Units 18:05 04:52 04:52 WBC 4.2 (3.98-10.04) x10^3/uL RBC 4.56 (3.93-5.22) x10^6/uL Hgb 13.9 (11.2-15.7) g/dL Hct 42.6 (34.1-44.9) % MCV 93.4 (79.4-94.8) fL MCH 30.5 (25.6-32.2) pg MCHC 32.6 (32.2-35.5) g/dL RDW 12.6 (11.7-14.4) % Plt Count 191 (182-369) x10^3/uL MPV 10.0 (9.4-12.3) fL Gran % 56.3 (34.0-71.1) % Immature Gran % (Auto) 0.2 (0.001-0.429) % Nucleat RBC Rel Count 0.0 (0.00-0.2) % Eos # (Auto) 0.18 (0.04-0.36) x10^3/uL Immature Gran # (Auto) 0.01 (0.001-0.031) x10^3u/L Absolute Lymphs (auto) 1.26 (1.18-3.74) x10^3/uL Absolute Monos (auto) 0.37 (0.24-0.86) x10^3/uL Absolute Nucleated RBC 0.00 (0.00-0.012) x10^3u/L Lymphocytes % 29.8 (19.3-51.7) % Monocytes % 8.7 (4.7-12.5) % Eosinophils % 4.3 (0.7-5.8) % Basophils % 0.7 (0.1-1.2) % Absolute Granulocytes 2.38 (1.56-6.13) x10^3/uL Basophils # 0.03 (0.01-0.08) x10^3/uL Sodium 139 (135-145) mmol/L Potassium 3.8 (3.5-5.1) mmol/L Chloride 106 (98-107) mmol/L Carbon Dioxide 25 (22-30) mmol/L Anion Gap 11.2 (5-15) MEQ/L BUN 19 H (7-17) mg/dL Creatinine 0.69 (0.52-1.04) mg/dL Estimated GFR 99.3 ML/MIN Glucose 98 (74-106) mg/dL Calcium 9.7 (8.4-10.2) mg/dL Total Bilirubin 1.60 H (0.2-1.3) mg/dL AST 23 (14-36) U/L ALT 14 (0-35) U/L Alkaline Phosphatase 74 (38-126) U/L Serum Total Protein 6.5 (6.3-8.2) g/dL Albumin 4.0 (3.5-5.0) g/dL Homocysteine 12.4 (0.0-14.5) umol/L ALEJANDRA Titer Pending RPR Pending Radiology Exams: Radiology Procedures Category Date Time Status CAROTID BILATERAL [US] Stat Exams 12/01/24 12:48 Taken ECHO W/2D AND DOPPLER [US] Stat Exams 12/01/24 12:48 Taken MRA BRAIN WITHOUT CONTRAST [MRI] Routine Exams 12/01/24 07:00 Taken MRA NECK WITH CONTRAST [MRI] Routine Exams 12/01/24 10:57 Taken MRI BRAIN W/O CONTRAST [MRI] Routine Exams 12/01/24 16:00 Completed Medications: Medications Generic Name Dose Route Start Last Admin Trade Name Freq PRN Reason Stop Dose Admin Acetaminophen 650 mg 11/29/24 13:24 Acetaminophen 325 Mg Tablet PO 12/29/24 13:23 Q4H PRN PRN PAIN, FEVER, HEADACHE Aspirin 81 mg 11/30/24 10:00 12/01/24 11:10 Aspirin 81 Mg Tablet.Ec PO 12/30/24 09:59 81 mg QAM HAYLEY Administration Ibuprofen 400 mg 11/29/24 14:04 12/01/24 11:09 Ibuprofen 400 Mg Tablet PO 12/29/24 14:03 400 mg QID PRN PRN Administration PAIN Ondansetron HCl 4 mg 11/29/24 13:24 Ondansetron Hcl 4 Mg/2 Ml Vial IV 12/29/24 13:23 Q6H PRN PRN NAUSEA/VOMITING Discontinued Medications Generic Name Dose Route Start Last Admin Trade Name Freq PRN Reason Stop Dose Admin Aspirin 325 mg 11/29/24 12:17 11/29/24 12:50 Aspirin 325 Mg Tablet.Ec PO 11/29/24 12:18 325 mg STAT ONE Administration Aspirin 325 mg 11/30/24 10:00 Aspirin 325 Mg Tablet.Ec PO 12/30/24 09:59 QAM HAYLEY Atorvastatin Calcium 40 mg 11/29/24 12:18 11/29/24 15:33 Atorvastatin Calcium 40 Mg Tablet PO 11/29/24 12:19 Not Given STAT STA Atorvastatin Calcium Confirm 11/29/24 12:40 Atorvastatin Calcium 40 Mg Tablet Administered 11/29/24 12:41 Dose 40 mg .ROUTE .STK-MED ONE Atorvastatin Calcium 40 mg 11/30/24 10:00 Atorvastatin Calcium 40 Mg Tablet PO 12/30/24 09:59 DAILY HAYLEY Ibuprofen 400 mg 11/29/24 11:06 11/29/24 11:56 Ibuprofen 400 Mg Tablet PO 11/29/24 11:07 Not Given STAT ONE Ibuprofen Confirm 11/29/24 11:08 Ibuprofen 400 Mg Tablet Administered 11/29/24 11:09 Dose 400 mg .ROUTE .STK-MED ONE Ibuprofen 400 mg 11/29/24 12:40 11/29/24 15:33 Ibuprofen 400 Mg Tablet PO 11/29/24 12:41 Not Given STAT ONE Multi-Disciplinary Progress Notes: Multi-Disciplinary Progress Notes 12/01/24 14:34 Radiology Note by KALI ESCOBEDO TRANSTHORACIC ECHOCARDIOGRAM 12/01/2024: 1. Normal biventricular wall thickness, chamber size, and systolic function. 2. Estimated left ventricular ejection fraction is 60-65%. 3. Normal diastolic function profile. 4. Structurally normal valves without evidence of a vegetation. 5. There is no significant valvular stenosis or regurgitation by Doppler flow analysis. 6. Normal PA systolic pressure. 7. Normal right atrial pressure. 8. No pericardial effusion. 9. Impression: Normal echocardiogram. No obvious cardiac source of emboli. Kali Escobedo MD [facility] Initialized on 12/01/24 14:34 - END OF NOTE Assessment/Plan (1) Transient global amnesia Current Visit: Yes Status: Acute Code(s): G45.4 - TRANSIENT GLOBAL AMNESIA (2) Altered mental status Current Visit: Yes Status: Resolved Code(s): R41.82 - ALTERED MENTAL STATUS, UNSPECIFIED (3) Hyperlipidemia Current Visit: Yes Status: Acute Code(s): E78.5 - HYPERLIPIDEMIA, UNSPECIFIED (4) Arthritis Current Visit: Yes Status: Chronic Code(s): M19.90 - UNSPECIFIED OSTEOARTHRITIS, UNSPECIFIED SITE (5) Chronic back pain Current Visit: Yes Status: Acute Code(s): M54.9 - DORSALGIA, UNSPECIFIED; G89.29 - OTHER CHRONIC PAIN (6) Hypertension Current Visit: Yes Status: Chronic Assessment & Plan: (1) Transient global amnesia Current Visit: Yes Status: Acute Assessment & Plan: - MRI, MRA, EEG, ECHO, Carotid duplex today - re-consult Neuro after results back Code(s): G45.4 - TRANSIENT GLOBAL AMNESIA (2) Altered mental status Current Visit: Yes Status: Resolved Assessment & Plan: - resolved Code(s): R41.82 - ALTERED MENTAL STATUS, UNSPECIFIED (3) Hyperlipidemia Current Visit: Yes Status: Acute Assessment & Plan: - Pt refused medication - Education provided on diet and exercise control Code(s): E78.5 - HYPERLIPIDEMIA, UNSPECIFIED (4) Arthritis Current Visit: Yes Status: Chronic Assessment & Plan: -continue home regimen Code(s): M19.90 - UNSPECIFIED OSTEOARTHRITIS, UNSPECIFIED SITE (5) Chronic back pain Current Visit: Yes Status: Acute Assessment & Plan: -Under the care of pain management in [place]- patient receives steroid injections most recently last week Code(s): M54.9 - DORSALGIA, UNSPECIFIED; G89.29 - OTHER CHRONIC PAIN (6) Hypertension Current Visit: Yes Status: Chronic Assessment & Plan: - BP stable - not on any meds Code(s): I10 - ESSENTIAL (PRIMARY) HYPERTENSION Code(s): I10 - ESSENTIAL (PRIMARY) HYPERTENSION
[2024-12-02 05:06] LABS: Hematocrit 40.5 % (34.1-44.9); Hemoglobin 13.5 g/dL (11.2-15.7); Mean Cell Volume 91.6 fL (79.4-94.8); Mean Corpuscular Hemoglobin 30.5 pg (25.6-32.2); Mean Corpuscular Hgb Concent. 33.3 g/dL (32.2-35.5); Mean Platelet Volume 9.6 fL (9.4-12.3); Platelet Count 193 x10^3/uL (182-369); Red Blood Count 4.42 x10^6/uL (3.93-5.22); Red Cell Distribution Width 12.1 % (11.7-14.4); White Blood Count 4.5 x10^3/uL (3.98-10.04)
[2024-12-02 05:19] LABS: ALBUMIN 3.9 g/dL (3.5-5.0); ANION GAP 11.1 MEQ/L (5-15); BILIRUBIN,TOTAL 1.7 mg/dL (0.2-1.3); Calcium 9.4 mg/dL (8.4-10.2); Creatinine 1 0.7 mg/dL (0.52-1.04); Potassium 3.8 mmol/L (3.5-5.1); Total Protein 6.3 g/dL (6.3-8.2)
[2024-12-02 07:32] VITALS: BP 138/79; PULSE 88; RESP 16; TEMP 97.3; O2SAT 97
[2024-12-02 08:02] LABS: RPR Non Reactive (Non Reactive)
--- NOTE | 2024-12-02 08:19 | XRAY ---
Indication: Altered mental status. Memory lapse. Multi-slab 3-D [id number] MRA [place] performed. Comparison: None Distal internal carotid arteries are bilaterally symmetric. No critical stenosis or obstruction. Normal carotid terminus with normal branching A1 and M1 segments bilaterally. Incidental anatomic variant for origin posterior cerebral arteries bilaterally. Posterior circulation demonstrates attenuated basilar and left/right superior cerebellar arteries. No critical stenosis or obstruction. Impression: Negative MRA [place].
--- NOTE | 2024-12-02 08:24 | XRAY ---
Indication: Amnesia. Two-dimensional sonogram and color Doppler imaging carotid arteries in the neck performed. Comparison: None Examination right Krotzer collection demonstrates minimal eccentric calcific plaquing origin external carotid artery. Widely patent common carotid, carotid bulb, and internal carotid arteries. PSV CCA is 116 cm/s. PSV ICA is 150 cm/s. ICA/CCA ratio is 1.3. Normal antegrade vertebral artery flow. Examination left carotid circulation demonstrates minimal calcified plaquing proximal external carotid and lesser degree proximal internal carotid arteries. Widely patent common carotid and carotid bulb. PSV CCA is 111 cm/s. PSV ICA is 169 cm/s. ICA/CCA ratio is 1.5. Normal antegrade vertebral artery flow. Impression: Minimal arteriosclerotic disease bilaterally as detailed. Velocity measurements and ratios negative for hemodynamically significant flow stenosis.
--- NOTE | 2024-12-02 08:54 | XRAY ---
Indication: Altered mental status. Memory lapse. Multi-slab 3-D [id number] MRA [place] performed. Comparison: None Distal internal carotid arteries are bilaterally symmetric. No critical stenosis or obstruction. Normal carotid terminus with normal branching A1 and M1 segments bilaterally. Incidental anatomic variant for origin posterior cerebral arteries bilaterally. Posterior circulation demonstrates attenuated basilar and left/right superior cerebellar arteries. No critical stenosis or obstruction. Impression: Negative MRA [place].
--- NOTE | 2024-12-02 09:00 | PCM.DS ---
Discharge Summary Date of Admission: 11/29/24 13:19 Date of Discharge: 12/02/24 Admitting Physician: SHAMIKA OLMSTEAD MD Primary Care Provider: TRINO HIGUERA RICHMOND Allergies Allergies nitrous oxide Allergy (Verified 11/29/24 15:47) tachycardia Hospital Summary - Hospital Course Hospital Course: Ms. BATRES is a 58-year-old female with a history of arthritis and chronic back pain, managed with steroid injections, who presented to the ED on 11/29/24 with acute onset of anterograde amnesia. Her symptoms began the night prior, when she returned home confused and unable to recall a brief solo car trip. She described experiencing a mental "fog" that has since cleared, with gradual return of memory. On presentation, she was alert, oriented, and neurologically intact, with a NIH Stroke Scale of 0. Her vitals were notable for elevated systolic blood pressure (peak 180 mmHg) and mild tachypnea. Laboratory results were largely unremarkable, aside from mildly elevated bilirubin (1.9 mg/dL) and trace leukocytes in the urine without signs of infection. EKG showed sinus rhythm with a short PA interval and no acute abnormalities. Head CT was negative. Teleneurology consultation by Dr. Alston supported a diagnosis of transient global amnesia (TGA), likely migrainous in origin, with TIA and seizure deemed unlikely. Recommendations included observation and further evaluation with MRI/MRA of the brain, EEG, carotid Doppler, and echocardiogram. Aspirin 325 mg was initiated and continued at 81 mg daily; a statin was recommended but declined by the patient. During hospitalization, the patient remained stable and symptom-free. On 11/30 and 12/01, she reported no recurrence of memory issues, with only a mild headache on 12/01. She was eager for discharge, but pending imaging results necessitated continued hospitalization. On 12/02, she continued to request discharge and was alert, oriented, and asymptomatic. She was informed about the discovery of an old stroke on imaging, which she was previously unaware of. Further discussion with neurology was planned regarding this finding and any additional recommendations prior to discharge. - Vitals & Intake/Output Vital Signs: Vital Signs Temperature 97.3 F 12/02/24 07:32 Pulse Rate 88 12/02/24 07:32 Respiratory Rate 16 12/02/24 07:32 Blood Pressure 138/79 12/02/24 07:32 O2 Sat by Pulse Oximetry 97 12/02/24 07:32 Intake & Output: Intake & Output 11/29/24 11/30/24 12/01/24 12/02/24 11:59 11:59 11:59 11:59 Intake Total 840 1220 1400 Balance 840 1220 1400 Weight 71.9 kg 70 kg - Lab Result Diagrams: 12/02/24 04:40 12/02/24 04:40 Lab Results-Last 24 Hrs: Lab Results-Last 24 Hours 11/29/24 12/02/24 12/02/24 Range/Units 18:05 04:40 04:40 WBC 4.5 (3.98-10.04) x10^3/uL RBC 4.42 (3.93-5.22) x10^6/uL Hgb 13.5 (11.2-15.7) g/dL Hct 40.5 (34.1-44.9) % MCV 91.6 (79.4-94.8) fL MCH 30.5 (25.6-32.2) pg MCHC 33.3 (32.2-35.5) g/dL RDW 12.1 (11.7-14.4) % Plt Count 193 (182-369) x10^3/uL MPV 9.6 (9.4-12.3) fL Sodium 139 (135-145) mmol/L Potassium 3.8 (3.5-5.1) mmol/L Chloride 106 (98-107) mmol/L Carbon Dioxide 26 (22-30) mmol/L Anion Gap 11.1 (5-15) MEQ/L BUN 16 (7-17) mg/dL Creatinine 0.70 (0.52-1.04) mg/dL Estimated GFR 99.0 ML/MIN Glucose 101 (74-106) mg/dL Calcium 9.4 (8.4-10.2) mg/dL Total Bilirubin 1.70 H (0.2-1.3) mg/dL AST 24 (14-36) U/L ALT 15 (0-35) U/L Alkaline Phosphatase 73 (38-126) U/L Serum Total Protein 6.3 (6.3-8.2) g/dL Albumin 3.9 (3.5-5.0) g/dL Homocysteine 12.4 (0.0-14.5) umol/L ALEJANDRA Titer Pending RPR Non Reactive (Non Reactive) Micro Results-Entire Visit: Microbiology 11/29/24 09:45 Blood Culture - Preliminary Blood 11/29/24 09:56 Blood Culture - Preliminary Blood - Radiology Exams Ordered Rad Exams-Entire Visit: Radiology Procedures Category Date Time Status CAROTID BILATERAL [US] Stat Exams 12/01/24 12:48 Completed ECHO W/2D AND DOPPLER [US] Stat Exams 12/01/24 12:48 Taken MRA BRAIN WITHOUT CONTRAST [MRI] Routine Exams 12/01/24 07:00 Completed MRA NECK WITH CONTRAST [MRI] Routine Exams 12/01/24 10:57 Completed MRI BRAIN W/O CONTRAST [MRI] Routine Exams 12/01/24 16:00 Completed - Procedures and Test Procedures and Tests throughout Hospitalization: Therapy Orders & Screens 11/29/24 13:24 EKG REPEAT IN AM Comment: 12/01/24 08:00 EEG 41-60 Minutes (Normal) ONCE Comment: Reason For Exam: Discharge Exam General Appearance: no apparent distress, alert Neurologic Exam: alert, oriented x 3, cooperative, normal mood/affect, nml cerebellar function, sensation nml, No motor deficits Eye Exam: PERRL, EOMI, eyes nml inspection Ears, Nose, Throat Exam: normal ENT inspection, pharynx normal, moist mucous membranes Neck Exam: normal inspection, non-tender, supple, full range of motion Respiratory Exam: normal breath sounds, lungs clear, No respiratory distress Cardiovascular Exam: regular rate/rhythm, normal heart sounds Gastrointestinal/Abdomen Exam: soft, No tenderness, No mass Pelvic Exam: deferred Rectal Exam: deferred Back Exam: normal inspection, normal range of motion, No CVA tenderness, No vertebral tenderness Extremity Exam: normal inspection, normal range of motion Skin Exam: normal color, warm, dry Final Diagnosis/Problem List - Final Discharge Diagnosis/Problem (1) Transient global amnesia Current Visit: Yes Status: Acute Code(s): G45.4 - TRANSIENT GLOBAL AMNESIA (2) Altered mental status Current Visit: Yes Status: Resolved Code(s): R41.82 - ALTERED MENTAL STATUS, UNSPECIFIED (3) Hyperlipidemia Current Visit: Yes Status: Acute Code(s): E78.5 - HYPERLIPIDEMIA, UNSPECIFIED (4) Arthritis Current Visit: Yes Status: Chronic Code(s): M19.90 - UNSPECIFIED OSTEOARTHRITIS, UNSPECIFIED SITE (5) Chronic back pain Current Visit: Yes Status: Acute Code(s): M54.9 - DORSALGIA, UNSPECIFIED; G89.29 - OTHER CHRONIC PAIN (6) Hypertension Current Visit: Yes Status: Chronic Assessment & Plan: (1) Transient global amnesia Current Visit: Yes Status: Acute Assessment & Plan: - MRI, MRA, EEG, ECHO, Carotid duplex 12/01- results reviewed 12/02 - Discussed pt case with neurology today and ok to d/c and continue ASA 81 mg daily- pt to discuss statin with her neurologist per her request. - EEG negative - Echo: TRANSTHORACIC ECHOCARDIOGRAM 12/01/2024: 1. Normal biventricular wall thickness, chamber size, and systolic function. 2. Estimated left ventricular ejection fraction is 60-65%. 3. Normal diastolic function profile. 4. Structurally normal valves without evidence of a vegetation. 5. There is no significant valvular stenosis or regurgitation by Doppler flow analysis. 6. Normal PA systolic pressure. 7. Normal right atrial pressure. 8. No pericardial effusion. 9. Impression: Normal echocardiogram. No obvious cardiac source of emboli. Code(s): G45.4 - TRANSIENT GLOBAL AMNESIA (2) Altered mental status Current Visit: Yes Status: Resolved Assessment & Plan: - resolved Code(s): R41.82 - ALTERED MENTAL STATUS, UNSPECIFIED (3) Hyperlipidemia Current Visit: Yes Status: Acute Assessment & Plan: - Pt refused medication- would like to discuss with her neurologist. - Education provided on diet and exercise control Code(s): E78.5 - HYPERLIPIDEMIA, UNSPECIFIED (4) Arthritis Current Visit: Yes Status: Chronic Assessment & Plan: -continue home regimen Code(s): M19.90 - UNSPECIFIED OSTEOARTHRITIS, UNSPECIFIED SITE (5) Chronic back pain Current Visit: Yes Status: Acute Assessment & Plan: -Under the care of pain management in [place]- patient receives steroid injections most recently last week Code(s): M54.9 - DORSALGIA, UNSPECIFIED; G89.29 - OTHER CHRONIC PAIN (6) Hypertension Current Visit: Yes Status: Chronic Assessment & Plan: - BP stable - not on any meds Code(s): I10 - ESSENTIAL (PRIMARY) HYPERTENSION Code(s): I10 - ESSENTIAL (PRIMARY) HYPERTENSION - Discharge Discharge Date: 12/02/24 Disposition: Home, Self-Care Condition: Stable Prescriptions: New Aspirin EC 81 mg [Ecotrin 81 mg] 81 mg PO QAM 30 Days #30 tablet Follow up with: Marci Levine [Other, NEUROLOGY] - 12/02/24 1:20 pm TRINO HIGUERA MD [Primary Care Provider, [facility]ILY [facility]ACTICE] - 12/05/24 8:45 am Referral Note: Will be seen by Francia Zamora NP
--- NOTE | 2024-12-02 10:50 | PCM.NOTE ---
Date and Time: 12/02/24 1048 Subjective Assessment: Physician Signature This document was electronically signed by: Emily Stein MD Consult Cover Page FROM: Candida BikantaYoselin, Call Back Number: [phone] SUBJECT: Consult Recommendations Date and Time of Report: 12/02/2024 10:46 AM ET Items Contained in this Document: Neurology Progress Note Consult Information Member Facility: [facility] Facility Consult ID: [id number] Facility Time Zone: ET Date and Time of Request: 12-02-2024 09:10 AM ET Requesting Clinician: Matt Bowie Patient Name: RICHELLE BATRES Date of : 1965 Gender: Female Patient identity was confirmed at the beginning of the consult with the patient/family/staff using two personal identifiers: Patient name and Teleneurology Computer Engineering Technologist: Emily Stein MD Reason for Consult Reason for Consult: Inpatient General Patient Location and Admission Status: Inpatient Miscellaneous Patient identity was confirmed at the beginning of the consult with the patient/family/staff using two personal identifiers: Patient name and Progress Note Clinical Notes: Video f/u with pt. 58 yo F admitted after having 1 hour of memory loss followed by headache. Transient global amnesia vs migraine with aura were high on the differential. Pt underwent brain MRI which showed remote R basal gangia lacunar infarct o/w negative imaging. She was started on ASA 81mg qday. She refused statin. MRA COW, MRA neck and carotid US- no significant stenosis TTE- normal echocardiogram ALEJANDRA pending RPR neg a1c 4.67 trop neg LDL 109 B12 331 homocysteine 12.4 EEG negative per Dede STOCK MANAGER Telemetry per Dede STOCK MANAGER Pt likely had migraine with aura though can not rule out TIA or TGA since they are clinical diagnoses. Doing well clinically. Back to baseline. She is willing to start statin as goal LDL < 70 however she may wait to see a neurologist who she has an appointment with later today. Primary team could address that with her before discharge. Continue ASA 81mg qday. Consider B12 supplementation. f/u on the ALEJANDRA as outpt if not resulted during admission. I answered all of pt's questions as well as the STOCK MANAGER's questions. Please call us back with any other concerns/questions that may arise. Attestation Interaction Mode: Video & Phone Time of Phone Call : 12-02-2024 09:50 AM ET Time of Video Call : 12-02-2024 10:19 AM ET Interaction Attestation: Clinical telemedicine services delivered using HIPAA- compliant interactive video-audio telecommunications while the patient and the rendering provider were not in the same physical location. Written report was provided to the requesting provider. Dixon Timer Summary Date and Time of Request: 12-02-2024 09:10 AM ET Physician Signature This document was electronically signed by: Emily Stein MD MY original consult note from ED: Physician Signature This document was electronically signed by: Emily Stein MD 11/29/2024 11:42 AM Consult Cover Page FROM: BeQuan, Call Back Number: [phone] SUBJECT: Consult Recommendations Date and Time of Report: 11/29/2024 11:43 AM ET Items Contained in this Document: Neurology Consult Note Consult Information Member Facility: [facility] Facility Consult ID: [id number] Facility Time Zone: ET Date and Time of Request: 11-29-2024 10:35 AM ET Requesting Clinician: DR WARNER Patient Name: RICHELLE BATRES Date of : 1965 Gender: Female Patient identity was confirmed at the beginning of the consult with the patient/family/staff using two personal identifiers: Patient name and Teleneurology Computer Engineering Technologist: Emily Stein MD Reason for Consult Reason for Consult: Code Stroke TLKW 4.5 to 24 hours General Chief Complaint: transient memory loss Patient Location and Admission Status: ED- Patient is not admitted Family Members and Medical Staff Present During Exam: and sister nurse History of Present Illness: 58 yo F p/w 1 hour of loss of memory. Pt feels back to her baseline now. Pt states she was in a fog and there's about an hour of time she lost but she states she is consolidating memories now. She states she drove about 8 miles and can not recall the drive. Doesn't recall details during that hour. She told her something was wrong and he states she seemed to have a blank look but otherwise he didn't notice anything off. Pt had nausea earlier, but better now. Pt initially denied headache but right when I was about to get off camera, she felt the beginnings of her typical migraine. She states usually resolves with ibuprofen. Denies weakness, numbness, speech changes, dizziness, twitching, jerking. Pt has a migraine history; never had sx like she is experiencing today prior to migraine or at any time. Number of Documented HPI Elements: 1-3 Medical History Medical History: Migraine Other Medical History: L plantar fasciitis Other Past Procedures: toe surgery Other Family History: mom- benign brain tumor Allergies Other Allergies: nitrous oxide Medications Anti-Coagulants: None Anti-Platelets: None Other Medications: none Social History Alcohol Use: None Illicit Drug Use: None Tobacco Use: None Vital Signs Temperature: Afebrile Blood Pressure (mmHg): 180/81 Heart Rate (bpm): 86 O2 Sat (%): 100 POC Glucose(mg/dL): 115 Date and Time: 11/29/2024 11:01:34 AM ET Review Of Systems Neurological: See HPI NIH Stroke Scale NIH Stroke Scale Score: 0 1. Level of Consciousness: 0 : alert; keenly responsive. 1a. LOC Questions: 0 : Answers both questions correctly. 1b. LOC Commands: 0 : Performs both tasks correctly. 2. Best Gaze: 0 : Normal. 3. Visual: 0 : No visual loss. 4. Facial Palsy: 0 : Normal symmetrical movements. 5a. Motor Left Arm: 0 : No drift; limb holds 90 (or 45) degrees for full 10 seconds. 5b. Motor Right Arm : 0 : No drift; limb holds 90 (or 45) degrees for full 10 seconds. 6a. Motor Left Le : No drift; leg holds 30-degree position for full 5 seconds. 6b. Motor Right Le : No drift; leg holds 30-degree position for full 5 seconds. 7. Limb Ataxia: 0 : Absent. 8. Sensory: 0 : Normal; no sensory loss. 9. Best Language: 0 : No aphasia; normal. 10. Dysarthria: 0 : Normal. 11. Extinction and inattention (formerly Neglect) : 0 : No abnormality. NIHSS Entry Time: 11/29/2024 11:30:14 AM ET Exam Exam: GEN: NAD MENTAL STATUS: A&O x name, age, month. SPEECH: no dysarthria; no aphasia. certified hyperbaric technician: VF intact, EOMI, facial sensation symmetric to LT, facial grimace symmetric, tongue midline. MOTOR: LUE: maintains arm outstretched with no drift. RUE: maintains arm outstretched with no drift. LLE: maintains leg raised 30 degrees from bed for 5 seconds. RLE: maintains leg raised 30 degrees from bed for 5 seconds. INVOLUNTARY MOVEMENTS: none. SENSORY: UEs: LT intact b/l. LEs: LT intact b/l . EXTINCTION or NEGLECT: none. COORDINATION: UEs: FNF intact b/l. LEs: HTS intact b/l. GAIT: steady, independent. Labs and Imaging Labs available?: Yes Other Labs: cbc overall unremarkable tbili 1.9 o/w cmp overall unremarkable thyroid studies normal Utox neg CT Brain Findings: No acute changes Assessment and Recommendations Assessment: 58 yo F p/w 1 hour of memory loss. Back to baseline now. Pt is starting to feel a migraine coming on, so aura high on the differential. TIA, transient global amnesia, seizure and psychogenic causes are considerations as well. Recommendations: Admit for work up and stroke prevention: If pt's sx return, please obtain repeat head CT with CTA head and neck stat and please call us back. Time clock has reset. STUDIES: -MRI brain, MRA brain and neck (MRA only if CTA not done) -24 hour holter monitor or telemetry -Echocardiogram with bubble study -If not done already, ALEJANDRA, ESR, RPR, HgA1c, lipid panel, homocysteine, B12, troponin, UA -Obtain CXR and EKG, if not done -EEG, inpt or outpt MEDS: Antiplatelet vs. Anticoagulation: -Start ASA 325mg x1 now then 81mg qday - IF severe large vessel INTRACRANIAL stenosis noted on MRA or CTA: ASA 81 mg + plavix 75 mg x 90 days, then ASA 81 mg or plavix ALONE, preferably plavix - IF pt has afib then in general: antiplatelet bridge for 7-14 days, then anticoagulate (timing depending on size of stroke, blood on f/u imaging, TTE) -Start atorvastatin 80mg qday, goal LDL <70 CARE: -Maintain glucose level <180 -NPO until swallow evaluation CONSULTS: -Inpt neurology f/u ALL ABOVE IF NO CONTRAINDICATIONS. After the above preliminary workup is completed, further decisions regarding diagnosis and/or management can be made by primary team and/or in-house neurologist. Please re-consult our Teleneurology service, if in-house neurology not available, with additional questions, concerns, or changes in this patients neurological status. Disposition: Admit patient to telemetry or stroke unit Miscellaneous Patient identity was confirmed at the beginning of the consult with the patient/family/staff using two personal identifiers: Patient name and Diagnosis Impression: Other Diagnosis Other: transient memory loss Case discussed with: Dr Warner Inclusion Criteria Neurological deficit considered to be disabling within 4.5 h of ischemic stroke symptom onset or patient last known well: No Thrombolysis Recommendation Thrombolysis recommended?: No Reason Thrombolysis not recommended Comments: pt is back to her baseline Attestation Interaction Mode: Video & Phone Time of Phone Call : 11-29-2024 11:34 AM ET Time of Video Call : 11-29-2024 10:46 AM ET Interaction Attestation: Clinical telemedicine services delivered using HIPAA- compliant interactive video-audio telecommunications while the patient and the rendering provider were not in the same physical location. Written report was provided to the requesting provider. Evaluation Duration (mins): 55 Dixon Timer Summary ED Arrival Date and Time: 11-29-2024 09:19 AM ET Date and Time of Request: 11-29-2024 10:35 AM ET Addendum 11/29/2024 11:43:31 AM: I am unable to access the EMR. Physician Signature This document was electronically signed by: Emily Stein MD 11/29/2024 11:42 AM Objective Exam - Vital Signs Vital Signs: Vital Signs - 24 hr 12/01/24 12/01/24 12/01/24 11:40 16:00 20:00 Temperature 98.2 F 97.6 F 98.0 F Pulse Rate 80 82 87 Respiratory 16 16 16 Rate Blood Pressure 155/72 124/60 133/62 [Right Arm] O2 Sat by Pulse 94 L 93 L 92 L Oximetry 12/01/24 12/02/24 12/02/24 23:43 04:00 07:32 Temperature 98.0 F 97.8 F 97.3 F Pulse Rate 84 78 88 Respiratory 16 18 16 Rate Blood Pressure 126/59 117/58 138/79 [Right Arm] O2 Sat by Pulse 94 L 97 Oximetry - NIHSS Stroke Scale Date Completed: 11/29/24 Time Stroke Scale Completed: 09: Objective Data - Labs Lab/Micro Results: Lab Results-Last 24 Hours 11/29/24 12/02/24 12/02/24 Range/Units 18:05 04:40 04:40 WBC 4.5 (3.98-10.04) x10^3/uL RBC 4.42 (3.93-5.22) x10^6/uL Hgb 13.5 (11.2-15.7) g/dL Hct 40.5 (34.1-44.9) % MCV 91.6 (79.4-94.8) fL MCH 30.5 (25.6-32.2) pg MCHC 33.3 (32.2-35.5) g/dL RDW 12.1 (11.7-14.4) % Plt Count 193 (182-369) x10^3/uL MPV 9.6 (9.4-12.3) fL Sodium 139 (135-145) mmol/L Potassium 3.8 (3.5-5.1) mmol/L Chloride 106 (98-107) mmol/L Carbon Dioxide 26 (22-30) mmol/L Anion Gap 11.1 (5-15) MEQ/L BUN 16 (7-17) mg/dL Creatinine 0.70 (0.52-1.04) mg/dL Estimated GFR 99.0 ML/MIN Glucose 101 (74-106) mg/dL Calcium 9.4 (8.4-10.2) mg/dL Total Bilirubin 1.70 H (0.2-1.3) mg/dL AST 24 (14-36) U/L ALT 15 (0-35) U/L Alkaline Phosphatase 73 (38-126) U/L Serum Total Protein 6.3 (6.3-8.2) g/dL Albumin 3.9 (3.5-5.0) g/dL Homocysteine 12.4 (0.0-14.5) umol/L ALEJANDRA Titer Pending RPR Non Reactive (Non Reactive) Microbiology 11/29/24 09:45 Blood Culture - Preliminary Blood 11/29/24 09:56 Blood Culture - Preliminary Blood - Radiology Orders Radiology Orders: Radiology Procedures Category Date Time Status CAROTID BILATERAL [US] Stat Exams 12/01/24 12:48 Completed ECHO W/2D AND DOPPLER [US] Stat Exams 12/01/24 12:48 Taken MRA BRAIN WITHOUT CONTRAST [MRI] Routine Exams 12/01/24 07:00 Completed MRA NECK WITH CONTRAST [MRI] Routine Exams 12/01/24 10:57 Completed MRI BRAIN W/O CONTRAST [MRI] Routine Exams 12/01/24 16:00 Completed Assessment & Plan - Encounter Encounter: "The entirety of this encounter was performed via Telemedicine using audio and visual "
[2024-12-02 15:11] LABS: Anti-Centromere B Antibodies <0.2 AI (0.0-0.9); Anti-Jo-1 <0.2 AI (0.0-0.9); Antichromatin Antibodies <0.2 AI (0.0-0.9); Antiribosomal P Antibodies <0.2 AI (0.0-0.9); Antiscleroderma-70 Antibodies <0.2 AI (0.0-0.9); RNP Antibodies <0.2 AI (0.0-0.9); Sjogren's Anti-SS-A <0.2 AI (0.0-0.9); Sjogren's Anti-SS-B <0.2 AI (0.0-0.9); Smith/RNP Antibodies <0.2 AI (0.0-0.9)
[2024-12-02 15:45] LABS: Anti-DNA (DS) Ab Qn <1 IU/mL (0-9); Antinuclear Antiboides, IFA Positive (.)
== END 2024-12-02 11:18 | disposition home or self-care (01) ==
LOC: ED 09:15 → MED SURG 13:19
PROVIDERS: ADMIT Internal Medicine; ATTEND Internal Medicine
DX: G45.4 Transient global amnesia (principal); R41.82 Altered mental status, unspecified; E78.5 Hyperlipidemia, unspecified; M19.90 Unspecified osteoarthritis, unspecified site; M54.9 Dorsalgia, unspecified; G89.29 Other chronic pain; I10 Essential (primary) hypertension; D72.829 Elevated white blood cell count, unspecified; R06.82 Tachypnea, not elsewhere classified
CPT/HCPCS: 36415; 70450; 70544; 70548; 70551; 80053; 80061; 80143; 80179; 80307; 81001; 82077; 82607; 82947; 83036; 83090; 83605; 83721; 83735; 84439; 84443; 84484; 85025; 85027; 85652; 86038; 86225; 86235; 86592; 86593; 86780; 87040; 93005; 93041; 93306; 93880; 94760; 95812; 99285; Q3014; A9270-GY